=== PATIENT | male | born 1945 | race Caucasian/White ===

== ENCOUNTER → 2018-02-24 21:21 | Outpatient (CLI) | payer MEDICARE, OTHER, SELFPAY ==
[2018-02-24 21:36] LABS: Absolute Lymphocyte Count 1.94 X10^3/ul (0.83-4.51); Absolute Neutrophil Count 4.1 X10^3/uL (2.0-7.7); Basophil# 0.02 X10^3/uL; Basophil% 0.3 % (0-1); Eosinophil# 0.18 X10^3/uL; Eosinophils% 2.5 % (0-5); Hematocrit 47.3 % (40-54); Hemoglobin 15.6 g/dl (13.0-16.5); Lymphocyte # 1.94 X10^3/ul (4.0); Lymphocyte % 27.2 % (19-41); Mean Corpuscular Hgb 31.8 pg (27.0-32.0); Mean Corpuscular Volume 96.3 fL (80-94); Mean Platelet Vol. 12.9 fl (6.2-12.0); Monocyte# 0.89 X10^3/uL; Monocyte% 12.5 % (0-10); Neutrophil % 57.4 % (47-70); Platelet Count 153 K/mm3 (150-450); RBC Distribution Width CV 13.3 % (11.6-14.6); RBC Distribution Width SD 47.4 fl (35.1-43.9); Red Blood Count 4.91 M/mm3 (4.6-6.2); White Blood Count 7.1 K/mm3 (4.4-11.0)
[2018-02-24 21:37] LABS: POSITIVE COUNT NO; POSITIVE DIFFERENTIAL NO; POSITIVE MORPHOLOGY NO
[2018-02-24 22:02] LABS: Alkaline Phosphatase 133 U/L (45-117); GGTP 32 U/L (15-85)
[2018-02-26 20:07] LABS: Alkaline Phosphatase, Serum 130 IU/L (39-117); Bone Fraction 22 % (12-68); Liver Fraction 74 % (13-88)
[2018-02-27 14:07] LABS: Intestinal Fraction 5 % (0-18)
== END ==
PROVIDERS: Visit Provider Nurse Practitioner
DX: D58.2 Other hemoglobinopathies (principal); R74.8 Abnormal levels of other serum enzymes
CPT/HCPCS: 82977; 84075; 84080; 85025

== ENCOUNTER 2018-05-05 15:54 | Emergency (ER) | payer MEDICARE, OTHER, SELFPAY ==
[2018-05-05 15:56] VITALS: BP 149/80; PULSE 109; RESP 16; TEMP 36.8; O2SAT 97; BMI 25.1
--- NOTE | 2018-05-05 16:03 | NURSING ---
NO OLD EKGS
--- NOTE | 2018-05-05 16:27 | ED.DCSUM_ITS ---
- ER Visit Summary Date of Service: 05/05/18 Chief Complaint: Irregular heartbeat History of Present Illness: The patient is a 72 M known history of CAD, CT x2, hypertension, high cholesterol, cardiac stents, triple bypass in 2003. Patient was at his pain management doctors office today was going to get an epidural injection they felt his heart rate was irregular and same in the ER. He denies any chest pain or shortness of breath. He himself did not feel any symptoms. Says he feels fine. He denied being lightheaded or dizzy. He denies any history of A. fib or flutter. Physical Examination: Well-appearing older male. Vital signs are stable. He is afebrile. Pulse is 97% room air no signs of hypoxia. HEENT exam unremarkable. Neck nontender no lymphadenopathy. Lungs clear to auscultation bilaterally. Heart regular rhythm no murmur. Abdomen soft nontender. Normal bowel sounds no peritoneal signs. Extremities moves all 4. Calves nontender without edema or cords. Neurologically is awake alert with no focal motor deficits. Test Results: Chest x-ray shows cardiomegaly. With a prior sternotomy. Read by myself. His initial CBC I believe there would be a lab error as hemoglobin was 23 and his platelets were 55 ahead and repeated with a repeat draw and the second CBC showed a white count of 9 hemoglobin is 16 and hematocrit of 47 and platelet count of 134 which is more consistent with his prior CBCs. Chemistry panel unremarkable potassium 3.3. Normal gap and creatinine. Troponin normal. EKG shows sinus rhythm rate is 64 with PACs. He did have a prior CT that is cued out in the inferior leads. But there is no acute CT at this time is having no symptoms. I do not have an old EKG available for comparison. Emergency Department Course and Treatment: Patient sent in for abnormal cardiac rhythm. I did review the rhythm strip from the doctor's office most of that was regular sinus rhythm there may have been some PACs. Treatment Plan: Multiple repeat exams patient is doing well. He will be discharged home. Disposition: Discharge Impression: Irregular heartbeat secondary to PACs History of CAD, MIs x2 and stents This note was generated with [employer] dictation software. It may contain incorrect words, spelling, and punctuation that were not noted in review of the chart prior to signing ED Disposition - Plan for ED Patient: Chief Complaint: Palpitations Referrals: Caprice Morales, PRIMO-C [Primary Care Provider] -
--- NOTE | 2018-05-05 17:16 | RAD_ITS ---
STUDY: X-RAY CHEST REASON FOR EXAM: Male, 72 years old. Chest pain and palpitations TECHNIQUE: 1 view frontal COMPARISON: CT chest August 28, 2016 FINDINGS: Sternotomy and mediastinal clips. The lungs are clear and expanded. There is no demonstrated pleural abnormality. Normal size heart. Normal mediastinum and tapan. Normal visualized pulmonary arteries. Normal visualized aortic arch and descending thoracic aorta. Normal visualized thoracic spine. Normal visualized ribs, clavicles, and shoulders. There is no demonstrated abnormality of the visualized soft tissue structures of the upper abdomen. RAD/Chest 1 View (Portable) IMPRESSION: Sternotomy. No acute disease. Electronically Signed: Daniel Merlos MD at 18:37 EST , Service support ,
[2018-05-05 17:34] VITALS: O2SAT 100
[2018-05-05 17:38] LABS: Anion Gap 5 (5-15); BUN 12 mg/dL (7-18); BUN/Creat Ratio 13.8 RATIO (10-20); Chloride 102 mmol/L (98-107); Creatinine, Serum 0.87 mg/dL (0.70-1.30); EST Glomerular Filtration Rate 91 mL/min (>60); Est Glom Filt Rate - Afr Amer 111 mL/min (>60); Estimated Creatinine Clearance 75.62 ml/min; Glucose 106 mg/dL (74-106); Potassium 3.3 mmol/L (3.5-5.1); Sodium Level 138 mmol/L (136-145)
--- NOTE | 2018-05-05 17:59 | EKG12_ITS ---
Test Reason : DYSRHYTHMIA Blood Pressure : / mmHG Vent. Rate : 064 BPM Atrial Rate : 064 BPM P-R Int : 188 ms QRS Dur : 106 ms QT Int : 406 ms P-R-T Axes : -11 -24 012 degrees QTc Int : 418 ms Sinus rhythm with Premature atrial complexes Voltage criteria for left ventricular hypertrophy Lateral infarct , age undetermined Inferior infarct , possibly acute Consider right ventricular involvement in acute inferior infarct Abnormal ECG Confirmed by SCOTTY PARK, LUIZ ([id number]), make up editor ANGIE MARSH ([id number]) on 05/07/2018 1:15:21 PM Referred By: JUANJOSE Confirmed By:LUIZ FAJARDO MD
[2018-05-05 18:05] VITALS: BP 124/76; PULSE 54; RESP 16; O2SAT 99
[2018-05-05 18:16] LABS: Hematocrit 47.3 % (40-54); Hemoglobin 16.3 g/dl (13.0-16.5); Mean Corp Hgb Conc 34.5 g/gl (32-36); Mean Corpuscular Hgb 32.5 pg (27.0-32.0); Mean Corpuscular Volume 94.2 fL (80-94); Mean Platelet Vol. 12.5 fl (6.2-12.0); Platelet Count 134 K/mm3 (150-450); RBC Distribution Width CV 13.3 % (11.6-14.6); RBC Distribution Width SD 45.8 fl (35.1-43.9); Red Blood Count 5.02 M/mm3 (4.6-6.2); White Blood Count 9.2 K/mm3 (4.4-11.0)
[2018-05-05 18:30] LABS: Scan Indicated on CBC? Y/N NO
--- NOTE | 2018-05-05 18:35 | ED.DEP ---
ED Disposition - Plan for ED Patient: Disposition: Home or Assisted Living Chief Complaint: Palpitations Instructions: ED Palpitations Referrals: Caprice Morales NP-C [Primary Care Provider] - As Needed Additional Instructions: Follow-up with your doctor with regular scheduled appointment.
[2018-05-05 18:51] VITALS: BP 124/76; PULSE 59; RESP 16
== END 2018-05-05 18:53 | disposition home or self-care (01) ==
PROVIDERS: Emergency Provider Emergency Medicine; Family Provider Nurse Practitioner; PCP Nurse Practitioner
DX: I49.1 Atrial premature depolarization (principal); I25.10 Atherosclerotic heart disease of native coronary artery without angina pectoris; I10 Essential (primary) hypertension; E78.00 Pure hypercholesterolemia, unspecified; Z79.82 Long term (current) use of aspirin; Z79.899 Other long term (current) drug therapy; I25.2 Old myocardial infarction; Z85.46 Personal history of malignant neoplasm of prostate; Z95.5 Presence of coronary angioplasty implant and graft; Z95.1 Presence of aortocoronary bypass graft
CPT/HCPCS: 71045; 80048; 84484; 85027; 93005; 99285; A4216

== ENCOUNTER → 2018-12-13 22:28 | Outpatient (CLI) | payer MEDICARE, SELFPAY ==
[2018-12-13 15:02] VITALS: BMI 25.9
[2018-12-13 22:49] LABS: Absolute Lymphocyte Count 2.36 X10^3/ul (0.83-4.51); Absolute Neutrophil Count 4.9 X10^3/uL (2.0-7.7); Basophil# 0.05 X10^3/uL; Basophil% 0.6 % (0-1); Eosinophil# 0.24 X10^3/uL; Eosinophils% 2.8 % (0-5); Hematocrit 48.3 % (40-54); Hemoglobin 16.7 g/dl (13.0-16.5); Lymphocyte # 2.36 X10^3/ul (4.0); Lymphocyte % 27.3 % (19-41); Mean Corp Hgb Conc 34.6 g/gl (32-36); Mean Corpuscular Hgb 32.5 pg (27.0-32.0); Mean Platelet Vol. 13.7 fl (6.2-12.0); Monocyte# 1.09 X10^3/uL; Monocyte% 12.6 % (0-10); Neutrophil # 4.89 X10^3/uL (2.7-7.7); Neutrophil % 56.5 % (47-70); Platelet Count 154 K/mm3 (150-450); RBC Distribution Width CV 13.1 % (11.6-14.6); Red Blood Count 5.14 M/mm3 (4.6-6.2); White Blood Count 8.7 K/mm3 (4.4-11.0)
[2018-12-13 22:51] LABS: ALB/GLOB Ratio 1.1 RATIO (0.9-2.4); AST(SGOT) 37 U/L (15-37); Alanine Aminotransfer ALT/SGPT 44 U/L (16-61); Albumin, Serum 4.4 g/dL (3.2-5.0); Alkaline Phosphatase 146 U/L (45-117); Anion Gap 8 (5-15); BUN 20 mg/dL (7-18); BUN/Creat Ratio 17.5 RATIO (10-20); Calcium,Total 9.1 mg/dL (8.5-10.1); Chloride 104 mmol/L (98-107); Cholesterol 163 mg/dL (200); Creatinine, Serum 1.14 mg/dL (0.70-1.30); EST Glomerular Filtration Rate 67 mL/min (>60); Est Glom Filt Rate - Afr Amer 81 mL/min (>60); Globulin 3.9 g/dL (2.2-4.2); Glucose 84 mg/dL (74-106); High Density Lipoprotein 44 mg/dL; PSA,Total - Annual Screen < 0.01 ng/mL (0.00-4.00); Protein, Total 8.3 g/dL (6.4-8.2); Sodium Level 143 mmol/L (136-145); Triglycerides 217 mg/dL; Very Low Density Lipoprotein 43 mg/dL (5-40)
[2018-12-13 22:54] LABS: POSITIVE COUNT NO; POSITIVE DIFFERENTIAL NO; POSITIVE MORPHOLOGY NO
== END ==
PROVIDERS: Family Provider Nurse Practitioner; PCP Nurse Practitioner; Referring Provider Nurse Practitioner; Visit Provider Nurse Practitioner
DX: E78.5 Hyperlipidemia, unspecified (principal); I10 Essential (primary) hypertension; R35.0 Frequency of micturition; Z12.5 Encounter for screening for malignant neoplasm of prostate
CPT/HCPCS: 80053; 80061; 84153; 85025; G0103

== ENCOUNTER → 2019-06-06 12:43 | Outpatient (CLI) | payer MEDICARE, SELFPAY ==
[2019-03-31 13:11] VITALS: BMI 25.1
--- NOTE | 2019-06-06 12:51 | ART_ITS ---
Reason For Study: PVD Procedure A bilateral lower extremity continuous wave Doppler with analog waveform analysis,segmental pressures,and ankle brachial indexes without exercise. Left Segmental Pressures Left brachial= 148mmHg. Left posterior tibial artery = 201mmHg. Left dorsalis pedis artery = 202mmHg. Left digit = 101 mmHg. The left dorsalis pedis waveforms are triphasic. The left posterior tibial artery waveforms are triphasic. Right Segmental Pressures Right brachial= 156mmHg. Right posterior tibial artery = 206mmHg. Right dorsalis pedis artery = 189mmHg. Right digit = 88 mmHg. The right dorsalis pedis waveforms are triphasic. The right posterior tibial artery waveforms are triphasic. Indices The right ankle brachial index by the dorsalis pedis is 1.21. The right ankle brachial index by the posterior tibial artery is 1.32. The right digital-brachial index is 0.56. The left ankle brachial index by the dorsalis pedis is 1.29. The left ankle brachial index by the posterior tibial artery is 1.29. The left digital-brachial index is 0.65. Interpretation Summary Triphasic Doppler waveforms are noted at ankle level bilaterally. Pulse-volume recording waveform amplitudes are diminished at digital level bilaterally, but satisfactory at low-thigh, calf, and ankle levels bilaterally. Resting ankle-brachial indices are normal bilaterally. Digital-brachial indices are mildly diminished. Arterial flow appears to be normal at ankle level bilaterally. There is evidence of mild, distal, small-vessel arterial occlusive disease at digital level bilaterally. Ordering Physician: Caprice Morales Referring Physician: Caprice Morales Performed By: Leora Kulkarni RVT
--- NOTE | 2019-06-06 12:51 | VDLE_ITS ---
Reason For Study: PVD RIGHT LEFT CFV is compressible, spontaneous, phasic, CFV is compressible, spontaneous, phasic, competent and demonstrates normal competent, and demonstrates normal augmentation. augmentation. FV is compressible, spontaneous, phasic, FV is compressible, spontaneous, phasic, competent and demonstrates normal competent and demonstrates normal augmentation. augmentation. POP V is compressible, spontaneous, phasic, POP V is compressible, spontaneous, phasic, competent and demonstrates normal competent and demonstrates normal augmentation. augmentation. T/P Trunk is compressible. T/P Trunk is compressible. PTV is compressible. PTV is compressible. RT PerV is compressible. LT PerV is compressible. SFJ is INCOMPETENT and measures 0.66 x 0.69 SFJ is competent and measures 0.39 x 0.39 cm. cm. GSV proximal thigh measures 0.36 x 0.36 cm. GSV proximal thigh measures 0.61 x 0.66 cm. GSV in prox thigh is INCOMPETENT for greater GSV at knee measures 0.33 x 0.35 cm. than 0.5 seconds. GSV INCOMPETENT throughout for greater than GSV mid thigh and below was previously 0.5 seconds. ablated. ASV mid thigh is INCOMPETENT for greater than SSV was too small to evaluate. 0.5 seconds and measures 0.39 x 0.40 cm. ASV mid thigh is INCOMPETENT for greater than SSV at junction is competent and measures 0.5 seconds and measures 0.25 x 0.21 cm. 0.15 x 0.15 cm. Procedure Exam performed in department. Interpretation Summary Deep veins of the lower extremities are bilaterally patent and compressible segmentally. There is no evidence of deep vein thrombosis on either side. Valvular competence appears intact within the proximal deep venous systems bilaterally. The right great saphenous vein appears patent and compressible segmentally. The right sapheno-femoral junction is incompetent . The left sapheno- femoral junction is competent . The right great saphenous vein appears segmentally incompetent. The left great saphenous vein in the proximal thigh is incompetent. The left great saphenous vein has been ablated in the mid-thigh and more distally. The right small saphenous vein is patent and competent. The left small saphenous vein is too small to evaluate. The right accessory saphenous vein in the right mid-thigh is incompetent. The left accessory saphenous vein in the left mid-thigh is incompetent. Ordering Physician: Caprice Morales Referring Physician: Caprice Morales Performed By: Leora Kulkarni RVT
== END ==
PROVIDERS: Family Provider Nurse Practitioner; PCP Nurse Practitioner; Referring Provider Nurse Practitioner; Visit Provider Nurse Practitioner
DX: I73.9 Peripheral vascular disease, unspecified (principal); I83.90 Asymptomatic varicose veins of unspecified lower extremity; R60.0 Localized edema; R23.3 Spontaneous ecchymoses
CPT/HCPCS: 93923; 93970

== ENCOUNTER → 2019-11-24 | Outpatient (CLI) | payer MEDICARE, SELFPAY ==
[2019-11-24 16:58] VITALS: BMI 26.2
[2019-11-24 22:10] LABS: Absolute Lymphocyte Count 2.04 X10^3/uL (0.83-4.51); Absolute Neutrophil Count 6.6 X10^3/uL (2.0-7.7); Basophil# 0.06 X10^3/uL; Basophil% 0.6 % (0-1); Eosinophil# 0.14 X10^3/uL; Eosinophils% 1.4 % (0-5); Hemoglobin 16.7 g/dL (13.0-16.5); Lymphocyte # 2.04 X10^3/ul (4.0); Lymphocyte % 20.5 % (19-41); Mean Corp Hgb Conc 34.1 g/dL (32-36); Mean Corpuscular Hgb 32.4 pg (27.0-32.0); Mean Platelet Vol. 13.3 fl (6.2-12.0); Monocyte# 1.02 X10^3/uL; Monocyte% 10.3 % (0-10); NRBC Flagged by Analyzer 0 % (0-5); Neutrophil # 6.63 X10^3/uL (2.7-7.7); Neutrophil % 66.8 % (47-70); Platelet Count 151 K/mm3 (150-450); RBC Distribution Width CV 12.9 % (11.6-14.6); RBC Distribution Width SD 44.8 fl (35.1-43.9); Red Blood Count 5.16 M/mm3 (4.6-6.2); White Blood Count 9.9 K/mm3 (4.4-11.0)
[2019-11-24 22:23] LABS: ALB/GLOB Ratio 1.1 RATIO (0.9-2.4); AST(SGOT) 34 U/L (15-37); Alanine Aminotransfer ALT/SGPT 65 U/L (16-61); Albumin, Serum 4.1 g/dL (3.2-5.0); Alkaline Phosphatase 147 U/L (45-117); Anion Gap 7 (5-15); BUN 14 mg/dL (7-18); BUN/Creat Ratio 13.7 RATIO (10-20); Calcium,Total 9.2 mg/dL (8.5-10.1); Chloride 100 mmol/L (98-107); Cholesterol 162 mg/dL (200); Creatinine, Serum 1.02 mg/dL (0.70-1.30); EST Glomerular Filtration Rate 76 mL/min (>60); Est Glom Filt Rate - Afr Amer 92 mL/min (>60); Globulin 3.7 g/dL (2.2-4.2); Glucose 119 mg/dL (74-106); High Density Lipoprotein 51 mg/dL; Potassium 3.7 mmol/L (3.5-5.1); Protein, Total 7.8 g/dL (6.4-8.2); Sodium Level 138 mmol/L (136-145); Triglycerides 205 mg/dL; Very Low Density Lipoprotein 41 mg/dL (5-40)
== END | disposition home or self-care (01) ==
PROVIDERS: PCP Nurse Practitioner; Referring Provider Nurse Practitioner; Visit Provider Nurse Practitioner
DX: I10 Essential (primary) hypertension (principal); E78.5 Hyperlipidemia, unspecified
CPT/HCPCS: 80053; 80061; 85025

== ENCOUNTER → 2020-12-24 21:39 | Outpatient (CLI) | payer MEDICARE, SELFPAY ==
[2020-11-01 18:30] VITALS: BMI 25.9
[2020-12-24 21:45] LABS: Absolute Lymphocyte Count 2.14 X10^3/uL (0.83-4.51); Absolute Neutrophil Count 6.4 X10^3/uL (2.0-7.7); Basophil# 0.05 X10^3/uL; Basophil% 0.5 % (0-1); Eosinophil# 0.14 X10^3/uL; Eosinophils% 1.4 % (0-5); Hematocrit 50.9 % (40-54); Hemoglobin 16.9 g/dL (13.0-16.5); Lymphocyte # 2.14 X10^3/ul (0.83-4.51); Lymphocyte % 21.8 % (19-41); Mean Corp Hgb Conc 33.2 g/dL (32-36); Mean Corpuscular Hgb 31.5 pg (27.0-32.0); Mean Corpuscular Volume 94.8 fL (80-94); Mean Platelet Vol. 12.9 fl (6.2-12.0); Monocyte# 1.02 X10^3/uL; Monocyte% 10.4 % (0-10); NRBC Flagged by Analyzer 0 % (0-5); Neutrophil # 6.42 X10^3/uL (2.7-7.7); Neutrophil % 65.5 % (47-70); Platelet Count 156 K/mm3 (150-450); RBC Distribution Width SD 45.4 fl (35.1-43.9); Red Blood Count 5.37 M/mm3 (4.6-6.2); White Blood Count 9.8 K/mm3 (4.4-11.0)
[2020-12-24 22:02] LABS: ALB/GLOB Ratio 1.1 RATIO (0.9-2.4); AST(SGOT) 31 U/L (15-37); Alanine Aminotransfer ALT/SGPT 45 U/L (16-61); Albumin, Serum 4.2 g/dL (3.2-5.0); Alkaline Phosphatase 146 U/L (45-117); Anion Gap 7 (5-15); BUN 14 mg/dL (7-18); BUN/Creat Ratio 14.6 RATIO (10-20); CRP, High Sensitivity Cardiac 1.42 mg/L; Calcium,Total 9.3 mg/dL (8.5-10.1); Chloride 101 mmol/L (98-107); Cholesterol 164 mg/dL (200); Creatinine, Serum 0.96 mg/dL (0.70-1.30); EST Glomerular Filtration Rate 81 mL/min (>60); Est Glom Filt Rate - Afr Amer 98 mL/min (>60); Globulin 3.7 g/dL (2.2-4.2); Glucose 95 mg/dL (74-106); High Density Lipoprotein 56 mg/dL; PSA,Total - Annual Screen < 0.01 ng/mL (0.00-4.00); Potassium 3.8 mmol/L (3.5-5.1); Protein, Total 7.9 g/dL (6.4-8.2); Sodium Level 137 mmol/L (136-145); Triglycerides 180 mg/dL; Very Low Density Lipoprotein 36 mg/dL (5-40)
== END ==
PROVIDERS: PCP Nurse Practitioner; Referring Provider Nurse Practitioner; Visit Provider Nurse Practitioner
DX: I10 Essential (primary) hypertension (principal); R35.0 Frequency of micturition; Z12.5 Encounter for screening for malignant neoplasm of prostate
CPT/HCPCS: 80053; 80061; 84153; 85025; 86141; G0103

== ENCOUNTER → 2022-03-10 | Outpatient (CLI) | payer MEDICARE, SELFPAY ==
[2022-03-10 22:55] LABS: Absolute Lymphocyte Count 2.09 X10^3/uL (0.83-4.51); Absolute Neutrophil Count 6.1 X10^3/uL (2.0-7.7); Basophil# 0.08 X10^3/uL; Basophil% 0.8 % (0-1); Eosinophil# 0.12 X10^3/uL; Eosinophils% 1.3 % (0-5); Hematocrit 48.8 % (40-54); Hemoglobin 16.7 g/dL (13.0-16.5); Lymphocyte # 2.09 X10^3/ul (0.83-4.51); Lymphocyte % 22.1 % (19-41); Mean Corp Hgb Conc 34.2 g/dL (32-36); Mean Corpuscular Hgb 33.2 pg (27.0-32.0); Mean Platelet Vol. 12.8 fl (6.2-12.0); Monocyte# 1.07 X10^3/uL; Monocyte% 11.3 % (0-10); NRBC Flagged by Analyzer 0 % (0-5); Neutrophil # 6.05 X10^3/uL (2.7-7.7); Platelet Count 176 K/mm3 (150-450); RBC Distribution Width CV 13.2 % (11.6-14.6); RBC Distribution Width SD 46.8 fl (35.1-43.9); Red Blood Count 5.03 M/mm3 (4.6-6.2); White Blood Count 9.5 K/mm3 (4.4-11.0)
[2022-03-10 23:10] LABS: ALB/GLOB Ratio 1.1 RATIO (0.9-2.4); AST(SGOT) 25 U/L (15-37); Alanine Aminotransfer ALT/SGPT 41 U/L (16-61); Albumin, Serum 3.9 g/dL (3.2-5.0); Alkaline Phosphatase 123 U/L (45-117); Anion Gap 7 (5-15); BUN 14 mg/dL (7-18); BUN/Creat Ratio 14.2 RATIO (10-20); Calcium,Total 9.6 mg/dL (8.5-10.1); Chloride 101 mmol/L (98-107); Cholesterol 165 mg/dL (200); Creatinine, Serum 0.98 mg/dL (0.70-1.30); EST Glomerular Filtration Rate 79 mL/min (>60); Est Glom Filt Rate - Afr Amer 95 mL/min (>60); Globulin 3.5 g/dL (2.2-4.2); Glucose 108 mg/dL (74-106); High Density Lipoprotein 59 mg/dL; PSA,Total - Annual Screen < 0.01 ng/mL (0.00-4.00); Potassium 4.3 mmol/L (3.5-5.1); Protein, Total 7.4 g/dL (6.4-8.2); Sodium Level 140 mmol/L (136-145); Triglycerides 197 mg/dL; Very Low Density Lipoprotein 39 mg/dL (5-40)
== END | disposition home or self-care (01) ==
PROVIDERS: PCP Nurse Practitioner; Visit Provider Nurse Practitioner
DX: I10 Essential (primary) hypertension (principal); J30.2 Other seasonal allergic rhinitis; R35.0 Frequency of micturition; Z12.5 Encounter for screening for malignant neoplasm of prostate
CPT/HCPCS: 80053; 80061; 84153; 85025; G0103

== ENCOUNTER → 2023-02-23 | Outpatient (CLI) | payer MEDICARE, SELFPAY ==
[2023-02-23 21:10] LABS: Absolute Lymphocyte Count 1.89 X10^3/uL (0.83-4.51); Absolute Neutrophil Count 5.2 X10^3/uL (2.0-7.7); Basophil# 0.06 X10^3/uL; Basophil% 0.7 % (0-1); Eosinophil# 0.23 X10^3/uL; Eosinophils% 2.7 % (0-5); Hemoglobin 16.6 g/dL (13.0-16.5); Lymphocyte # 1.89 X10^3/ul (0.83-4.51); Lymphocyte % 22.4 % (19-41); Mean Corp Hgb Conc 33.9 g/dL (32-36); Mean Corpuscular Hgb 32.4 pg (27.0-32.0); Mean Corpuscular Volume 95.7 fL (80-94); Mean Platelet Vol. 12.7 fl (6.2-12.0); Monocyte% 11.8 % (0-10); NRBC Flagged by Analyzer 0 % (0-5); Neutrophil # 5.22 X10^3/uL (2.7-7.7); Neutrophil % 61.8 % (47-70); Platelet Count 169 K/mm3 (150-450); RBC Distribution Width SD 45.7 fl (35.1-43.9); Red Blood Count 5.12 M/mm3 (4.6-6.2); White Blood Count 8.5 K/mm3 (4.4-11.0)
[2023-02-23 21:27] LABS: AST(SGOT) 29 U/L (15-37); Alanine Aminotransfer ALT/SGPT 44 U/L (16-61); Albumin, Serum 3.8 g/dL (3.2-5.0); Alkaline Phosphatase 129 U/L (45-117); Anion Gap 5 (5-15); BUN 14 mg/dL (7-18); BUN/Creat Ratio 13.7 RATIO (10-20); Calcium,Total 9.2 mg/dL (8.5-10.1); Chloride 101 mmol/L (98-107); Cholesterol 176 mg/dL (200); Creatinine, Serum 1.02 mg/dL (0.70-1.30); EST Glomerular Filtration Rate 75 mL/min (>60); Est Glom Filt Rate - Afr Amer 91 mL/min (>60); Globulin 3.7 g/dL (2.2-4.2); Glucose 121 mg/dL (74-106); High Density Lipoprotein 54 mg/dL; PSA,Total- Diagnostic < 0.01 ng/mL (0.0-4.0); Potassium 3.7 mmol/L (3.5-5.1); Protein, Total 7.5 g/dL (6.4-8.2); Sodium Level 138 mmol/L (136-145); Triglycerides 195 mg/dL; Very Low Density Lipoprotein 39 mg/dL (5-40)
== END | disposition home or self-care (01) ==
PROVIDERS: PCP Nurse Practitioner; Referring Provider Nurse Practitioner; Visit Provider Nurse Practitioner
DX: K21.9 Gastro-esophageal reflux disease without esophagitis (principal); E78.5 Hyperlipidemia, unspecified; I10 Essential (primary) hypertension; R35.0 Frequency of micturition
CPT/HCPCS: 80053; 80061; 84153; 85025

== ENCOUNTER → 2024-03-09 | Outpatient (CLI) | payer MEDICARE, SELFPAY ==
[2024-03-09 21:26] LABS: Absolute Lymphocyte Count 2.27 X10^3/uL (0.83-4.51); Absolute Neutrophil Count 7.1 X10^3/uL (2.0-7.7); Basophil# 0.08 X10^3/uL; Basophil% 0.7 % (0-1); Eosinophil# 0.16 X10^3/uL; Eosinophils% 1.5 % (0-5); Hematocrit 50.2 % (40-54); Hemoglobin 16.9 g/dL (13.0-16.5); Lymphocyte # 2.27 X10^3/ul (0.83-4.51); Lymphocyte % 20.9 % (19-41); Mean Corp Hgb Conc 33.7 g/dL (32-36); Mean Corpuscular Hgb 32.3 pg (27.0-32.0); Mean Corpuscular Volume 95.8 fL (80-94); Mean Platelet Vol. 12.9 fl (6.2-12.0); Monocyte# 1.18 X10^3/uL; Monocyte% 10.9 % (0-10); NRBC Flagged by Analyzer 0 % (0-5); Neutrophil # 7.13 X10^3/uL (2.7-7.7); Neutrophil % 65.6 % (47-70); Platelet Count 166 K/mm3 (150-450); RBC Distribution Width CV 12.9 % (11.6-14.6); RBC Distribution Width SD 46.2 fl (35.1-43.9); Red Blood Count 5.24 M/mm3 (4.6-6.2); White Blood Count 10.9 K/mm3 (4.4-11.0)
[2024-03-09 21:44] LABS: ALB/GLOB Ratio 1.1 RATIO (0.9-2.4); AST(SGOT) 32 U/L (15-37); Alanine Aminotransfer ALT/SGPT 36 U/L (16-61); Albumin, Serum 4.2 g/dL (3.2-5.0); Alkaline Phosphatase 129 U/L (45-117); Anion Gap 6 (5-15); BUN 14 mg/dL (7-18); BUN/Creat Ratio 13.3 RATIO (10-20); Calcium,Total 9.8 mg/dL (8.5-10.1); Chloride 100 mmol/L (98-107); Cholesterol 139 mg/dL (200); Creatinine, Serum 1.05 mg/dL (0.70-1.30); EST Glomerular Filtration Rate 72 mL/min (>60); Est Glom Filt Rate - Afr Amer 88 mL/min (>60); Globulin 3.7 g/dL (2.2-4.2); Glucose 103 mg/dL (74-106); High Density Lipoprotein 52 mg/dL; PSA,Total - Annual Screen < 0.01 ng/mL (0.00-4.00); Potassium 4.1 mmol/L (3.5-5.1); Protein, Total 7.9 g/dL (6.4-8.2); Sodium Level 136 mmol/L (136-145); Triglycerides 189 mg/dL; Very Low Density Lipoprotein 38 mg/dL (5-40)
== END | disposition home or self-care (01) ==
PROVIDERS: PCP Nurse Practitioner; Referring Provider Nurse Practitioner; Visit Provider Nurse Practitioner
DX: I10 Essential (primary) hypertension (principal); E78.5 Hyperlipidemia, unspecified; R35.0 Frequency of micturition; Z12.5 Encounter for screening for malignant neoplasm of prostate
CPT/HCPCS: 80053; 80061; 84153; 85025; G0103

== ENCOUNTER → 2024-04-12 | Outpatient (CLI) | payer MEDICARE, SELFPAY ==
--- OUTSIDE RECORDS SUMMARY | 2024-04-12 23:36 | XMS RPT_ITS | CCD ---
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 Phone Monika Pepe Primary Care Provider PROVIDER, UNKNOWN Referring Unavailable Monika Pepe Primary Care Unavailable Vin Vincent Attending Unavailable Monika Pepe Primary Care Provider MONIKA PEPE Primary Care Unavailable HOSEA LEDESMA Attending Unavailable MONIKA PEPE Primary Care Unavailable HOSEA LEDESMA Attending Unavailable Allergies Allergy Classification Reported Allergen(s) Allergy Type Date of Onset Reaction(s) Facility (3 sources) beta-Blocking agent; Translations: [beta blockers] Drug allergy 12-11-19 17 [facility] Work Phone: Comment on above: note per Monika steele's, pcp office notes (2 sources) Ramipril; Translations: [ramipril] Drug Allergy 12-11-19 17 Dry cough (finding), Other (See Comments) [facility] Work Phone: Comment on above: per dr dr ledesma note (3 sources) Sulfamethoxazole / Trimethoprim; Translations: [sulfamethoxazole-tr imethoprim] Drug Allergy 04-23-20 23 Swelling, Hives [facility] Work Phone: (1 source) Sulfonamides (Antibiotic); Translations: [sulfa drugs] Drug allergy Hives, Tongue swelling [facility] Work Phone: (3 sources) Verapamil; Translations: [verapamil] Drug Allergy 05-05-20 18 [facility] Work Phone: Comment on above: per pcp , dr xin coreas's office note (1 source) Beta-Adrenergic Chris Propensity to adverse reactions to drug 12-11-19 17 Other (See Comments) [facility] (3 sources) Sulfonamides (Antibiotic) Propensity to adverse reactions to drug 12-11-19 17 Hives, Swelling, Unknown [facility] Work Phone: (2 sources) Ramipril Allergy to substance 12-11-19 17 Cough, Unknown [facility] Medications Current Medications Medication Drug Class(es) Dates Sig (Normalized) Sig (Original) amLODIPine 10 mg oral tablet (5 sources) Dihydropyridine Calcium Channel Chris Start: 02-23-2023 take 1 tablet by mouth once daily amLODIPine (Norvasc) 10 MG tablet Take 10 mg by mouth daily. 02/23/2023 Active Start: 09-10-2021 take 10 mg by mouth once daily 10 mg, Oral, DAILY, First dose on Thu02/07/22 at 0900, Until Discontinued atorvastatin 80 mg oral tablet (5 sources) HMG-CoA Reductase Inhibitor Start: 02-23-2023 take 1 tablet by mouth once daily atorvastatin (Lipitor) 80 MG tablet Take 80 mg by mouth daily. 02/23/2023 Active Start: 09-10-2021 take 80 mg by mouth once daily 80 mg, Oral, NIGHTLY, First dose on Thu02/06/22 at 2200, Until Discontinued cholecalciferol 0.025 mg oral capsule (2 sources) Vitamin D take 1 capsule by mouth once daily cholecalciferol (Vitamin D-3) 25 MCG (1000 UT) capsule Take 1,000 Units by mouth daily. Active citalopram 20 mg oral tablet (5 sources) Serotonin Reuptake Inhibitor Start: 02-24-20 take 1 tablet by mouth once daily citalopram (CeleXA) 20 MG tablet Take 20 mg by mouth Nightly. 02/23/2023 Active Start: 09-10-2021 take 20 mg by mouth once daily 20 mg, Oral, DAILY, First dose on Thu02/07/22 at 0900, Until Discontinued Elderberry preparation (1 source) Start: 09-10-2021 take 1 tablet by mouth once daily elderberry Dose = 1 tab(s), Oral, Daily, 0 Refill(s) Start Date: 09/10/21 Status: Ordered hydroCHLOROthiazide 12.5 mg oral tablet (5 sources) Thiazide Diuretic Start: 02-23-2023 take 1 tablet by mouth once daily hydroCHLOROthiazide (HYDRODiuril) 12.5 MG tablet Take 12.5 mg by mouth daily. 02/23/2023 Active Start: 02-07-2022 take 12.5 mg by mout h once daily 12.5 mg, Oral, DAILY, First dose on Thu02/07/22 at 0900, Until Discontinued Start: 09-10-2021 hydroCHLOROthi azide 12.5 mg oral capsule Dose : 12.5 mg = 1 cap(s), Oral, qDay, # 30 cap(s), 0 Refill(s) Start Date: 09/10/21 Status: Ordered lansoprazole 30 mg delayed release oral capsule (4 sources) Proton Pump Inhibitor Start: 02-23-2023 take 1 capsule by mouth once daily lansoprazole (Prevacid) [address] capsule Take 30 mg by mouth daily. 02/23/2023 Active Start: 09-10-2021 lansoprazole 3 0 mg oral delayed release capsule Dose : 30 mg = 1 cap(s), Oral, qDay, # 30 cap(s), 0 Refill(s) Start Date: 09/10/21 Status: Ordered losartan potassium 50 mg oral tablet (2 sources) Angiotensin 2 Receptor Chris Start: 04-07-2024 End: 04-07-2025 take 1 tablet by mouth once daily losartan (Cozaar) 50 MG tablet Take 1 tablet (50 mg) by mouth daily. 90 tablet 3 04/07/2024 04/07/2025 Active Lubricant Eye Drops ophthalmic solution (1 source) Start: 09-10-2021 take 1 drop(s) into the eye(s) four times daily as needed Lubricant Eye Drops ophthalmic solution Dose = 2 drop(s), Eye, left, QID, PRN for dry eyes, # 30 EA, 0 Refill(s) Start Date: 09/10/21 Status: Ordered Magnesium (1 source) Magnesium 100 MG CAPS Take by mouth 0 Active magnesium gluconate 500 mg oral tablet (1 source) take 1 tablet by mouth twice daily magnesium gluconate (MAGONATE) 500 MG tablet Take 500 mg by mouth 2 times daily 0 Active magnesium oxide 500 mg oral tablet (1 source) Start: 09-10-2021 magnesium oxide 500 mg oral tablet Dose : 500 mg = 1 tab(s), Oral, qDay Start Date: 09/10/21 Status: Ordered Misc Natural Products (GLUCOSAMINE CHOND COMPLEX/MSM PO) (1 source) Misc Natural Products (GLUCOSAMINE CHOND COMPLEX/MSM PO) Take by mouth 0 Active 1 ml morphine sulfate 4 mg/ml injection (1 source) Opioid Agonist Start: 02-06-2022 4 mg, IntraVENous, EVERY 4 HOURS PRN, 2 doses, Starting on Thu02/06/22 at 2155, Until Discontinued, Pain Severe (7-10) If oral and IV narcotics ordered, use oral first and only use IV if oral is ineffective or cannot take oral. Do Not give oral and IV within 1 hour of each other unless specifically ordered. MULTIPLE MINERALS-VITAMINS PO (2 sources) take 1 tablet by mouth once daily MULTIPLE MINERALS-VITAMINS PO Take 1 tablet by mouth daily. Active Multiple Vitamins-Minerals (CENTRUM SILVER 50+MEN PO) (1 source) Multiple Vitamins-Minerals (CENTRUM SILVER 50+MEN PO) Take by mouth 0 Active Multiple Vitamins-Minerals (PRESERVISION AREDS 2 PO) (1 source) Multiple Vitamins-Minerals (PRESERVISION AREDS 2 PO) Take by mouth 0 Active ofloxacin 3 mg/ml ophthalmic solution (1 source) Quinolone Antimicrobial Start: 09-17-2021 take 1 drop(s) into the eye(s) four times daily ofloxacin 0.3% ophthalmic solution drop(s), QID, 0 Refill(s) Start Date: 09/17/21 Status: Ordered Osteo Bi-Flex Advanced oral tablet (1 source) Start: 09-10-2021 take 1 tablet by mouth once daily at mealtime Osteo Bi-Flex Advanced oral tablet Dose = 1 tab(s), Oral, Daily, 0 Refill(s), Take with food Start Date: 09/10/21 Status: Ordered PreserVision AREDS 2 oral capsule (1 source) Start: 09-10-2021 take 1 capsule by mouth once daily PreserVision AREDS 2 oral capsule Dose = 1 cap(s), Oral, Daily, 0 Refill(s) Start Date: 09/10/21 Status: Ordered regadenoson (LEXISCAN) injection 0.4 mg (1 source) Start: 02-06-2022 take 0.4 mg intravenously once as needed 0.4 mg, IntraVENous, IMG ONCE PRN, 1 dose, Starting on Thu02/06/22 at 2155, Until Discontinued, Other Only to be given in Nuclear Med during CARDIAC STRESS TEST ONLY. resveratrol (2 sources) Start: 09-10-2021 take 1 tablet by mouth once daily resveratrol resveratrol, 1 tab(s), Oral, Daily, 0 Refill(s) Start Date: 09/10/21 Status: Ordered RESVERATROL PO T lynda by mouth 0 Active 1000 ml sodium chloride 9 mg/ml injection (4 sources) Start: 02-06-2022 take 25 mL intravenously every hour as needed 25 mL, IntraVENous, at 100 mL/hr, PRN, If patient receiving piggyback infusions without ordered maintenance IV fluids or with frequent/long duration piggyback infusions, Starting on [facility] 02/06/22 at 2148 Administer at the same rate as the piggyback being infused. Start: 02-06-2022 take 1 dose intraven ously twice daily 5-40 mL, IntraVENous, EVERY 12 HOURS SCHEDULED (2 times per day), First dose on [place] 02/06/22 at 2215, Until Discontinued For Line Patency: Peripheral IV = 5 mL; Midline or Central Line = 10 mL/lumen. If following IV push medication, administer flush at same rate as the IV push. Flush volume is determined by type of infusion therapy being given. For non-viscous solutions use: Peripheral IV = 5 mL Midline or Central Line = 10 mL/lumen For viscous solutions (i.e. blood components, parenteral nutrition, contrast media, or after obtaining blood sample) use: Peripheral IV = 10 mL Midline or Central Line = 20 mL/lumen Start: 02-06-2022 take 5-40 mL intrave nously once as needed 5-40 mL, IntraVENous, PRN, Starting on [place] 02/06/22 at 2148, Until Discontinued, Line Care, After every IV line use For Line Patency: Peripheral IV = 5 mL; Midline or Central Line = 10 mL/lumen. If following IV push medication, administer flush at same rate as the IV push. Flush volume is determined by type of infusion therapy being given. For non-viscous solutions use: Peripheral IV = 5 mL Midline or Central Line = 10 mL/lumen For viscous solutions (i.e. blood components, parenteral nutrition, contrast media, or after obtaining blood sample) use: Peripheral IV = 10 mL Midline or Central Line = 20 mL/lumen Start: 09-10-2021 Annette 128 5% op hthalmic solution Dose = 1 drop(s), Eye, right, QID, 0 Refill(s) Start Date: 09/10/21 Status: Ordered Vitamin C 500 mg oral tablet (1 source) Start: 09-10-2021 Vitamin C 500 mg oral tablet Dose : 1,000 mg = 2 tab(s), Oral, qDay, # 90 tab(s), 0 Refill(s) Start Date: 09/10/21 Status: Ordered Vitamin D3 125 mcg (5000 int l units) oral capsule (1 source) Start: 09-10-2021 Vitamin D3 125 mcg (5000 intl units) oral capsule Dose : 125 mcg = 1 cap(s), Oral, qDay, # 100 cap(s), 0 Refill(s) Start Date: 09/10/21 Status: Ordered zinc gluconate 50 mg oral ta blet (2 sources) Start: 09-10-2021 zinc (as gluco juan) 50 mg oral tablet Dose : 50 mg = 1 tab(s), Oral, Daily, # 30 tab(s), 0 Refill(s) Start Date: 09/10/21 Status: Ordered Completed/Discontinued Medications Medication Drug Class(es) Dates Sig (Normalized) Sig (Original) acetaminophen 325 mg oral tablet (1 source) Start: 02-06-2022 take 650 mg by mouth every eight hours as needed, then take 4000 mg by mouth every twenty-four hours as needed 650 mg, Oral, EVERY 8 HOURS PRN, Starting on Thu02/06/22 at 2154, Until Discontinued, Pain Mild (1-3) Maximum dose of acetaminophen is 4000 mg from all sources in 24 hours. aspirin 81 mg chewable tablet (5 sources) Platelet Aggregation Inhibitor, Nonsteroidal Anti-inflammatory Drug Start: 02-07-2022 take 81 mg by mouth once daily 81 mg, Oral, DAILY, First dose on Thu02/07/22 at 0900, Until Discontinued Start: 09-10-2021 aspirin 81 mg oral delayed release tablet Dose : 81 mg = 1 tab(s), Oral, Daily, 0 Refill(s) Start Date: 09/10/21 Status: Ordered take 1 tablet by phyllis once daily aspirin 81 MG tablet Take 81 mg by mouth daily 0 Active COENZYME Q-10 PO (1 source) End: 02-06-2022 COENZYME Q-10 PO Take by mouth 0 02/06/2022 Discontinued (LIST CLEANUP) 2 ml ondansetron 2 mg/ml injection (1 source) Serotonin-3 Receptor Antagonist Start: 02-06-2022 4 mg, IntraVENous, EVERY 30 MIN PRN, 2 doses, Starting on Thu02/06/22 at 2148, Until Discontinued, Nausea pantoprazole 40 mg delayed release oral tablet (1 source) Proton Pump Inhibitor Start: 02-07-2022 take 40 mg by mouth once daily before breakfast 40 mg, Oral, DAILY BEFORE BREAKFAST, First dose on Thu02/07/22 at 0700, Until Discontinued Do not crush or break. Substituted for Lansoprazole (PREVACID). prednisoLONE acetate 10 mg/ml ophthalmic suspension (2 sources) Corticosteroid Start: 02-07-2022 take 1 drop(s) into the eye(s) once daily 1 drop, Right Eye, DAILY, First dose on Thu02/07/22 at 0900, Until Discontinued prednisoLONE maninder gotti (PRED FORTE) 1 % ophthalmic suspension Place 1 drop into the right eye daily 0 Active Problems Active Problems Problem Classification Problem Date Documented Date Episodic/Chronic Allergic reactions (4 sources) Allergy status to sulfonamides status; Translations: [Allergy status to other drugs, medicaments and biological substances status] Onset: 2 Episodic Cancer of prostate (2 sources) Personal history of malignant neoplasm of prostate; Translations: [Personal history of malignant neoplasm of prostate] Onset: 2 Episodic Coronary atherosclerosis and other heart disease (12 sources) Coronary arteriosclerosis; Translations: [Atherosclerotic heart disease of [place] coronary artery without angina pectoris] Onset: 2 12-19-2016 Chronic Disorders of lipid metabolism (7 sources) Hyperlipidemia; Translations: [Hyperlipidemia, unspecified] Onset: 7 12-22-2016 Chronic Essential hypertension (11 sources) Hypertensive disorder; Translations: [Essential (primary) hypertension] Onset: 7 12-22-2016 Chronic Fluid and electrolyte disorders (2 sources) Hyperkalemia; Translations: [Hyperkalemia] Onset: 2 Episodic Malaise and fatigue (6 sources) Asthenia; Translations: [Weakness] Onset: 2 Resolved: 2 Episodic Other aftercare (2 sources) detention (current) use of aspirin; 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] Onset: 2 Episodic Other eye disorders (2 sources) Corneal transplant status; 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] Onset: 2 Chronic Other hematologic conditions (2 sources) Other specified abnormalities of plasma proteins; Translations: [Other specified abnormalities of plasma proteins] Onset: 2 Episodic Other lower respiratory disease (2 sources) Other abnormalities of breathing; Translations: [Other abnormalities of breathing] Onset: 2 Episodic Other screening for suspected conditions (not mental disorders or infectious disease) (3 sources) Electrocardiogram abnormal; Translations: [Abnormal electrocardiogram [ECG] [EKG]] Onset: 2 Episodic Residual codes; unclassified (2 sources) Acquired absence of other specified parts of digestive tract; Translations: [Acquired absence of other specified parts of digestive tract] Onset: 2 Episodic Unclassified (1 source) Contact with and (suspected) exposure to COVID-19; Translations: [Contact with and (suspected) exposure to COVID-19] Onset: 2 Past or Other Problems Problem Classification Problem Date Documented Da te Episodic/Chronic Coronary atherosclerosis and other heart disease (7 sources) Stent in branch of right coronary artery; Translations: [Presence of coronary angioplasty implant and graft] Onset: 05-18-2012 12-19-2016 Episodic Unclassified (1 source) Contact with and (suspected) exposure to COVID-19; Translations: [Contact with and (suspected) exposure to COVID-19] Onset: 02-06-2022 Results Test Name Value Interpretation Reference Range Facility No Panel Informationon 04-07 Atrial Rhythm Voltage criteria for LVH (R(I)+S(III) exceeds 2.50 mV). -consider inferior injury. -ST depression -Seen with left ventricular hypertrophy (strain) -consider ischemia. ABNORMAL [facility] Office Visiton 04-07-2024 Follow-up visit [id number] Nidhi Briggs 1945 M Date Provider Department Center 04/07/2024 [id number] [place] Family History Problem Relation Age of Onset Coronary artery disease Brother Coronary artery disease Father Coronary artery disease Brother Family Status - Relation Status Age at Brother Father Brother Alive Brother Brother Brother Mother Level of Service:37161 [place] OFFICE/OUTPATIENT ESTABLISHED MOD MDM 30 MIN Reason for Visit and Comments: 1 Year Follow-up [670] Coronary Artery Disease [187] Normal [facility] Progress Noteon 04-07-2024 Progress Note [facility] Cardiology [facility] [place] [address] [facility] [address] Dept: [phone] Dept Visit type: Established : 1945 Chief Complaint: Chief Complaint Patient presents with 1 Year Follow-up Coronary Artery Disease History of Present Illness: Nidhi Briggs is a 78 y.o. male who is here in follow-up concerning his coronary artery disease. He had multivessel bypass surgery 20 years ago. He has done well since. He did have stenting afterwards approximately 10 years ago. He has no symptoms of angina currently. He walks and exercises regularly. He has not had syncope, near syncope or palpitations. Past Medical History: Past Medical History: Diagnosis Date CAD (coronary artery disease) Cancer (CMS/HCC) (HCC) prostate Hyperlipidemia Hypertension Old [place] (myocardial infarction) 05/2012 [place] 195 Presence of stent in right coronary artery 05/18/2012 JATIN S/P CABG x 3 2003 HAJI to LAD,SVG to OM2 ^ PL RCA Past Surgical History Past Surgical History: Procedure Laterality Date BACK SURGERY 1999 CARDIAC PROCEDURE 11/2003 CHOLECYSTECTOMY CORNEAL TRANSPLANT 09/16/2021 CORONARY ANGIOPLASTY CORONARY ARTERY BYPASS GRAFT 12/04/2003 NS laden- .HAJI to LAD,SVG to Cx^PL RCA PROSTATECTOMY Bilateral 2004 Family History Family History Problem Relation Name Age of Onset Coronary artery disease Brother Coronary artery disease Father Coronary artery disease Brother Social History Social History Tobacco Use Smoking status: Never Smokeless tobacco: Never Substance Use Topics Alcohol use: Not Currently Alcohol/week: 1.0 standard drink of alcohol Drug use: No Allergies: Allergies Allergen Reactions Sulfa Antibiotics Hives, Swelling and Unknown Other reaction(s): HIVES/SWELLING Beta Adrenergic Blockers Other reaction(s): Other, Other (See Comments) bradycardia Ramipril Cough and Unknown Other reaction(s): Dry cough Non-productive cough Non-productive cough Sulfamethoxazole-Trimet hoprim Other reaction(s): Hives, Swelling Verapamil Other reaction(s): Other, Other: See Comments Medications: Current Outpatient Medications: amLODIPine (Norvasc) 10 MG tablet, Take 10 mg by mouth daily., Disp: , Rfl: aspirin 81 MG EC tablet, Take 81 mg by mouth in the morning., Disp: , Rfl: atorvastatin (Lipitor) 80 MG tablet, Take 80 mg by mouth daily., Disp: , Rfl: cholecalciferol (Vitamin D-3) 25 MCG (1000 UT) capsule, Take 1,000 Units by mouth daily., Disp: , Rfl: citalopram (CeleXA) 20 MG tablet, Take 20 mg by mouth Nightly., Disp: , Rfl: hydroCHLOROthiazide (HYDRODiuril) 12.5 MG tablet, Take 12.5 mg by mouth daily., Disp: , Rfl: lansoprazole (Prevacid) [address] capsule, Take 30 mg by mouth daily., Disp: , Rfl: MULTIPLE MINERALS-VITAMINS PO, Take 1 tablet by mouth daily., Disp: , Rfl: losartan (Cozaar) 50 MG tablet, Take 1 tablet (50 mg) by mouth daily., Disp: 90 tablet, Rfl: 3 Review of Systems: Review of Systems Constitutional: Negative for activity change, chills, diaphoresis, fatigue and fever. HENT: Negative for nosebleeds and trouble swallowing. Eyes: Negative for discharge and visual disturbance. Respiratory: Negative for apnea, cough, chest tightness, shortness of breath and wheezing. Cardiovascular: Negative for chest pain, palpitations and leg swelling. Gastrointestinal: Negative for abdominal distention, abdominal pain, blood in stool, diarrhea, nausea and vomiting. Endocrine: Negative for cold intolerance and heat intolerance. Genitourinary: Negative for hematuria. Musculoskeletal: Negative for gait problem and myalgias. Skin: Negative for color change and rash. Neurological: Negative for dizziness, seizures, syncope, facial asymmetry, speech difficulty, weakness, light-headedness, numbness and headaches. Hematological: Does not bruise/bleed easily. Psychiatric/Behavioral: Negative for dysphoric mood. Physical Examination: Vitals: Vitals: 04/07/24 1018 04/07/24 1040 BP: (!) 172/80 (!) 170/90 BP Location: Left arm Left arm Patient Position: Sitting Sitting BP Cuff Size: Adult Adult Pulse: 62 SpO2: 95% Weight: 173 lb 12.8 oz (78.8 kg) Height: 5' 9 (1.753 m) Body mass index is 25.67 kg/m?. Physical Exam Constitutional: Appearance: Normal appearance. HENT: Head: Normocephalic and atraumatic. Nose: Nose normal. Eyes: General: No scleral icterus. Extraocular Movements: Extraocular movements intact. Pupils: Pupils are equal, round, and reactive to light. Neck: Thyroid: No thyromegaly. Vascular: No carotid bruit or JVD. Cardiovascular: Rate and Rhythm: Normal rate and regular rhythm. Pulses: Normal pulses. Heart sounds: Murmur heard. Systolic murmur is present with a grade of 1/6. No gallop. Pulmonary: Effort: Pulmonary effort is normal. Breath sounds: No wheezing, rhonchi or rales. Taylor (more content not included)... Normal [facility] 36on 10-21-2023 36 Pt called in with concerns of bruising due to being on Aspirin 81 mg daily. Pt asking if there is anything else that he could take that would have the same effect but not cause such easy bruising. Pt reports that this is not new but just wanted to check and see if there was anything that could be taken in it's place? Explained to pt that low-dose aspirin is typically life-long for those with CAD and that anything that is meant to thin the blood has the potential to cause easy bruising. Pt verbalized understanding and states will just continue taking the aspirin as prescribed, and had no further questions at this time. Normal [facility] Office Visiton 04-23-2023 Follow-up visit [id number] Nidhi Briggs 1945 [facility] Provider Department Center 04/23/2023 [id number] [facility] [place] Family History Problem Relation Age of Onset Coronary artery disease Brother Coronary artery disease Father Coronary artery disease Brother Family Status - Relation Status Age at Brother Father Brother Alive Brother Brother Brother Mother Level of Service:78683 [place] OFFICE/OUTPATIENT ESTABLISHED MOD MDM 30-39 MIN Reason for Visit and Comments: 1 Year Follow-up [670] Coronary Artery Disease [187] Normal [facility] Progress Noteon 04-23-2023 Progress Note [facility] Cardiology [facility] [address] [facility] [address] Dept: [phone] Dept Visit type: Established : 1945 Chief Complaint: Chief Complaint Patient presents with 1 Year Follow-up Coronary Artery Disease History of Present Illness: Nidhi Briggs is a 77 y.o. male who is here in follow-up concerning his coronary artery disease. He is currently doing well with no symptoms of chest pain, tightness or shortness of breath. He exercises regularly. He has not had syncope or near syncope. Past Medical History: Past Medical History: Diagnosis Date CAD (coronary artery disease) Cancer (CMS/HCC) (HCC) prostate Hyperlipidemia Hypertension Old [place] (myocardial infarction) 05/2012 [place] 195 Presence of stent in right coronary artery 05/18/2012 JATIN S/P CABG x 3 2003 HAJI to LAD,SVG to OM2 ^ PL RCA Past Surgical History Past Surgical History: Procedure Laterality Date BACK SURGERY 1999 CARDIAC PROCEDURE 11/2003 CHOLECYSTECTOMY CORNEAL TRANSPLANT 09/16/2021 CORONARY ANGIOPLASTY CORONARY ARTERY BYPASS GRAFT 12/04/2003 NS laden- .HAJI to LAD,SVG to Cx^PL RCA PROSTATECTOMY Bilateral 2004 Family History Family History Problem Relation Name Age of Onset Coronary artery disease Brother Coronary artery disease Father Coronary artery disease Brother Social History Social History Tobacco Use Smoking status: Never Smokeless tobacco: Never Substance Use Topics Alcohol use: Not Currently Alcohol/week: 1.0 standard drink of alcohol Drug use: No Allergies: Allergies Allergen Reactions Sulfa Antibiotics Hives, Swelling and Unknown Other reaction(s): HIVES/SWELLING Beta Adrenergic Blockers Other reaction(s): Other, Other (See Comments) bradycardia Ramipril Cough and Unknown Other reaction(s): Dry cough Non-productive cough Non-productive cough Sulfamethoxazole-Trimet hoprim Other reaction(s): Hives, Swelling Verapamil Other reaction(s): Other, Other: See Comments Medications: Current Outpatient Medications: amLODIPine (Norvasc) 10 MG tablet, Take 10 mg by mouth daily., Disp: , Rfl: aspirin 81 MG EC tablet, Take 81 mg by mouth in the morning., Disp: , Rfl: atorvastatin (Lipitor) 80 MG tablet, Take 80 mg by mouth daily., Disp: , Rfl: cholecalciferol (Vitamin D-3) 25 MCG (1000 UT) capsule, Take 1,000 Units by mouth daily., Disp: , Rfl: citalopram (CeleXA) 20 MG tablet, Take 20 mg by mouth Nightly., Disp: , Rfl: hydroCHLOROthiazide (HYDRODiuril) 12.5 MG tablet, Take 12.5 mg by mouth daily., Disp: , Rfl: lansoprazole (Prevacid) [address] capsule, Take 30 mg by mouth daily., Disp: , Rfl: MULTIPLE MINERALS-VITAMINS PO, Take 1 tablet by mouth daily., Disp: , Rfl: Review of Systems: Review of Systems Constitutional: Negative for activity change, chills, diaphoresis, fatigue and fever. HENT: Negative for nosebleeds and trouble swallowing. Eyes: Negative for discharge and visual disturbance. Respiratory: Negative for apnea, cough, chest tightness, shortness of breath and wheezing. Cardiovascular: Negative for chest pain, palpitations and leg swelling. Gastrointestinal: Negative for abdominal distention, abdominal pain, blood in stool, diarrhea, nausea and vomiting. Endocrine: Negative for cold intolerance and heat intolerance. Genitourinary: Negative for hematuria. Musculoskeletal: Negative for gait problem and myalgias. Skin: Negative for color change and rash. Neurological: Negative for dizziness, seizures, syncope, facial asymmetry, speech difficulty, weakness, light-headedness, numbness and headaches. Hematological: Does not bruise/bleed easily. Psychiatric/Behavioral: Negative for dysphoric mood. Physical Examination: Vitals: Vitals: 04/23/23 1430 BP: 139/70 BP Location: Left arm Patient Position: Sitting BP Cuff Size: Large adult Pulse: 57 Resp: 16 SpO2: 94% Weight: 177 lb 12.8 oz (80.6 kg) Height: 5' 9 (1.753 m) Body mass index is 26.26 kg/m?. Physical Exam Constitutional: Appearance: Normal appearance. HENT: Head: Normocephalic and atraumatic. Nose: Nose normal. Eyes: General: No scleral icterus. Extraocular Movements: Extraocular movements intact. Pupils: Pupils are equal, round, and reactive to light. Neck: Thyroid: No thyromegaly. Vascular: No carotid bruit or JVD. Cardiovascular: Rate and Rhythm: Normal rate and regular rhythm. Pulses: Normal pulses. Heart sounds: No murmur heard. No gallop. Pulmonary: Effort: Pulmonary effort is normal. Breath sounds: No wheezing, rhonchi or rales. Chest: Chest wall: No tenderness. Abdominal: General: Abdomen is flat. There is no distension. Palpations: Abdomen is soft. There is no hepatomegaly, splenomegaly or mass. Musculoskeletal: General: No swelling or tenderness. Normal range of motion. Cervical back: No tender (more content not included)... Normal [facility] CULTURE URINEon 02-08-2022 CULTURE URINE CULTURE URINE --> Status: F No growth (<1,000 CFU/ml). Normal [facility] Comment on above: Performed By: #### H EMDF, BMP3, LIPD2 #### [facility] [address] [place] [address] Culture, Urineon 02-08-2022 Bacteria identified Cx Nom (U) No growth (<1,000 CFU/ml). 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: KERRIE : 1945 Requested By: MELODIE CHASE Order Number: [id number] Reading MD: Trenton Edge Measurements Intervals [place] Rate: 59 P: -21 AK: 164 QRS: -22 QRSD: 102 T: 132 QT: 440 QTc: 436 Interpretive Statements Probable ectopic atrial rhythm LVH WITH SECONDARY REPOLARIZATION ABNORMALITY PROBABLE INFERIOR INFARCT, AGE INDETERMINATE CONSIDER ANTERIOR INFARCT Electronically Signed On 02-08-2022 9:53:01 EDT by Trenton [facility] Trenton Edge MD - 02/08/2022 [facility] Test Date: 2022-02-07 Pat Name: NIDHI BRIGGS Department: [facility] Room: [facility] Gender: M 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: KERRIE : 1945 Requested By: MELODIE CHASE Order Number: [id number] Reading MD: Trenton Edge Measurements Intervals [place] Rate: 59 P: -21 AK: 164 QRS: -22 QRSD: 102 T: 132 QT: 440 QTc: 436 Interpretive Statements Probable ectopic atrial rhythm LVH WITH SECONDARY REPOLARIZATION ABNORMALITY PROBABLE INFERIOR INFARCT, AGE INDETERMINATE CONSIDER ANTERIOR INFARCT Electronically Signed On 02-08-2022 9:53:01 EDT by Trenton Edge [facility] Work Phone: [facility] Work Phone: EKG 12 leadon 02-08-2022 [facility] Test Date: 2022-02-07 Pat Name: NIDHI BRIGGS Department: [facility] Room: [facility] Gender: M 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: KERRIE : 1945 Requested By: FRANCESCA CYR Order Number: [id number] Reading : Trenton Edge Measurements Intervals [place] Rate: 47 P: 12 AK: 200 QRS: -21 QRSD: 104 T: 126 QT: 472 QTc: 418 Interpretive Statements SLOW SINUS ARRHYTHMIA PROBABLE LEFT ATRIAL ABNORMALITY LVH WITH SECONDARY REPOLARIZATION ABNORMALITY CONSIDER ANTERIOR INFARCT BORDERLINE ST ELEVATION, INFERIOR LEADS Electronically Signed On 02-08-2022 9:50:39 EDT by Trenton [facility]CD[facility]ELS [facility] Trenton Edge MD - 02/08/2022 [facility] Test Date: 2022-02-07 Pat Name: NIDHI BRIGGS Department: [facility] Room: [facility] Gender: M 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: KERRIE : 1945 Requested By: FRANCESCA CYR Order Number: [id number] Reading : Trenton Edge Measurements Intervals [place] Rate: 47 P: 12 AK: 200 QRS: -21 QRSD: 104 T: 126 QT: 472 QTc: 418 Interpretive Statements SLOW SINUS ARRHYTHMIA PROBABLE LEFT ATRIAL ABNORMALITY LVH WITH SECONDARY REPOLARIZATION ABNORMALITY CONSIDER ANTERIOR INFARCT BORDERLINE ST ELEVATION, INFERIOR LEADS Electronically Signed On 02-08-2022 9:50:39 EDT by Trenton Edge [facility] Work Phone: EKG 12 leadOrdered By: Taty Edge on 02-08-2022 [facility] Work Phone: Troponinon 02-08-2022 Troponin I.cardiac [Mass/Vol] 0.026 ng/mL 0 - 0.034 ng/mL [facility] Comment on above: . Test Performed by [facility], [address] [place] [id number] [place] [address] LAB [facility] Troponin Ion 02-08-2022 Troponin I.cardiac [Mass/Vol] 0.026 ng/mL Normal 0.000-0.034 [facility] Comment on above: Result Comment: . Performed By: #### T ROPN #### [facility] [address] [place] [address] Basic Metabolic Panelon 01-14 Calcium [Mass/Vol] 9.5 mg/dL Normal 8.4-10.4 [facility] Comment on above: Performed By: #### H EMDF, BMP3, LIPD2 #### [facility] [address] [place] [address] Glucose [Mass/Vol] 108 mg/dL High 70-100 [facility] Comment on above: Performed By: #### H EMDF, BMP3, LIPD2 #### [facility] [address] [place] [address] Urea nitrogen [Mass/Vol] 14 mg/dL Normal 7-17 [facility] Comment on above: Performed By: #### H EMDF, BMP3, LIPD2 #### [facility] [address] [place] [address] Anion gap [Moles/Vol] 2 mmol/L Low 3-13 [facility] Comment on above: Performed By: #### H EMDF, BMP3, LIPD2 #### [facility] [address] [place] [address] CO2 [Moles/Vol] 36 mmol/L High 22-30 [facility] Comment on above: Performed By: #### H EMDF, BMP3, LIPD2 #### [facility] [address] [place] [address] Creatinine [Mass/Vol] 0.86 mg/dL Normal 0.52-1.25 [facility] Comment on above: Performed By: #### H EMDF, BMP3, LIPD2 #### [facility] [address] [place] [address] GFR/1.73 sq M.predicted among blacks MDRD (S/P/Bld) [Vol rate/Area] mL/min/{1.73_m2} Normal >60 [facility] Comment on above: Performed By: #### H EMDF, BMP3, LIPD2 #### [facility] [address] [place] [address] GFR/1.73 sq M.predicted among non-blacks MDRD (S/P/Bld) [Vol rate/Area] 83.5 mL/min/{1.73_m2} Normal >60 [facility] Comment on above: Result Comment: KDIG O guidelines provide the following GFR categories: Stage GFR(ml/min/1.73 m2) Terms G1 >=90 Normal or high G2 60-89 Mildly decreased* G3a 45-59 Mildly to moderately decreased G3b 30-44 Moderately to severely decreased G4 15-29 Severely decreased G5 <15 Kidney failure *Relative to young adult level. In the absence of evidence of kidney damage, neither GFR category G1 nor G2 fulfill the criteria for CKD. The CKD-EPI equation is validated in individuals 18 years of age and older. Currently the best equation for estimating glomerular filtration rate (GFR) from serum creatinine in children is the Bedside Anderson equation. It is less accurate in patients with extremes of muscle mass, restriction of dietary protein, ingestion of creatine, extra-renal metabolism of creatinine, or treatment with medications that affect renal tubular creatinine secretion. Performed By: #### H EMDF, BMP3, LIPD2 #### [facility] [address] [place] [address] Potassium [Moles/Vol] 6.0 mmol/L High 3.5-5.1 [facility] Comment on above: Performed By: #### H EMDF, BMP3, LIPD2 #### [facility] [address] [place] [address] Chloride [Moles/Vol] 100 mmol/L Normal 98-107 [facility] Comment on above: Performed By: #### H EMDF, BMP3, LIPD2 #### [facility] [address] [place] [address] Sodium [Moles/Vol] 138 mmol/L Normal 135-145 [facility] Comment on above: Performed By: #### H EMDF, BMP3, LIPD2 #### [facility] [address] [place], [place] [address] Anion gap [Moles/Vol] 2 mmol/L Low 3 - 13 mmol/L [facility] Calcium [Mass/Vol] 9.5 mg/dL 8.4 - 10. 4 mg/dL [facility] Chloride [Moles/Vol] 100 mmol/L 98 - 10 7 mmol/L [facility] CO2 [Moles/Vol] 36 mmol/L High 22 - 30 mmol/L [facility] Creatinine [Mass/Vol] 0.86 mg/dL 0.52 - 1.25 mg/dL [facility] eGFR mL/min 60 - PINF mL/min [facility] EGFR IF NonAfrican Austrian 83.5 mL/min 60 - PINF mL/min [facility] Comment on above: KDIGO guidelines pro vide the following GFR categories: Stage GFR(ml/min/1.73 m2) Terms G1 >=90 Normal or high G2 60-89 Mildly decreased* G3a 45-59 Mildly to moderately decreased G3b 30-44 Moderately to severely decreased G4 15-29 Severely decreased G5 <15 Kidney failure *Relative to young adult level. In the absence of evidence of kidney damage, neither GFR category G1 nor G2 fulfill the criteria for CKD. The CKD-EPI equation is validated in individuals 18 years of age and older. Currently the best equation for estimating glomerular filtration rate (GFR) from serum creatinine in children is the Bedside Anderson equation. It is less accurate in patients with extremes of muscle mass, restriction of dietary protein, ingestion of creatine, extra-renal metabolism of creatinine, or treatment with medications that affect renal tubular creatinine secretion. Glucose [Mass/Vol] 108 mg/dL High 70 - 100 mg/dL [facility] Potassium [Moles/Vol] 6.0 mmol/L High 3.5 - 5.1 mmol/L [facility] Sodium [Moles/Vol] 138 mmol/L 135 - 145 mmol/L [facility] Urea nitrogen (BldV) [Mass/Vol] 14 mg/dL 7 - 17 mg/dL [facility] CBC with Auto Differentialon 02-07-2022 Absolute Baso # 0.0 10*3/uL 0 - 0.2 10*3/uL [facility] Absolute Neut # 6.6 10*3/uL 1.8 - 7 10*3/uL [facility] Basophils/100 WBC (Bld) 0.3 % 0 - 2 % [facility] Eosinophils (Bld) [#/Vol] 0.1 10*3/uL 0 - 0.5 10*3/uL [facility] Eosinophils/100 WBC (Bld) 0.6 % Low 1 - 6 % [facility] Granulocytes/100 WBC (Bld) 69.3 % 40 - 80 % [facility] Hematocrit (Bld) [Volume fraction] 48.0 % 40 - 52 % [facility] Hemoglobin (Bld) [Mass/Vol] 16.4 g/dL 13 - 18 g/dL [facility] Interpretation and review of laboratory results Abnormal [facility] Lymphocytes (Bld) [#/Vol] 1.7 10*3/uL 1 - 4.3 10*3/uL [facility] Lymphocytes/100 WBC (Bld) 17.7 % Low 20 - 40 % [facility] MCH (RBC) [Entitic mass] 32.8 pg 26 - 34 pg [facility] MCHC (RBC) [Mass/Vol] 34.1 % 32 - 36 % [facility] MCV (RBC) [Entitic vol] 96.2 fL 80 - 98 fL [facility] Monocytes (Bld) [#/Vol] 1.2 10*3/uL High 0 - 0.8 10*3/uL [facility] Monocytes/100 WBC (Bld) 12.1 % High 2 - 10 % [facility] Platelet distribution width (Bld) [Ratio] 14.0 % 11.5 - 14.5 % [facility] Platelet mean volume (Bld) [Entitic vol] 10.3 fL 7.4 - 12.4 fL [facility] Comment on above: MPV is a calculated measurement using platelet volume ratio. Platelets (Bld) [#/Vol] 139 10*3/uL Low 140 - 440 10*3/uL [facility] RBC (Bld) [#/Vol] 4.99 10*6/uL 4.4 - 5.9 10*6/uL [facility] WBC (Bld) [#/Vol] 9.5 10*3/uL 3.6 - 10.7 10*3/uL [facility] Test Performed by [facility], [address], [place], [place] [address] [facility] CK [Catalytic activity/Vol] 26 U/L Low 30-170 [facility] Comment on above: Performed By: #### K 3, DEEPAKN, CK3 #### [facility] [address] [place] [address] CK [Catalytic activity/Vol] 26 U/L Low 30 - 170 U/L [facility] Interpretation and review of laboratory results Abnormal [facility] COVID and Resp PCR Panelon 0 02-07-2022 SARS-CoV-2 (COVID-19) RNA ALONA+probe Ql (Unsp spec) COVID and Resp PCR Panel --> Status: F NEGATIVE: No targets were detected by the [employer] Upper Respiratory Pathogens PCR Panel. _ Expected Result: Not Detected The [employer] Upper Respiratory Pathogens PCR Panel can detect the following targets: SARS-CoV-2, Adenovirus, Coronavirus 229E, Coronavirus HKU1, Coronavirus NL63, Coronavirus OC43, Human Metapneumovirus, Human Rhinovirus/Enterovirus, Influenza A, Influenza B, Parainfluenza Virus 1, Parainfluenza Virus 2, Parainfluenza Virus 3, Parainfluenza Virus 4, Respiratory Syncytial Virus, Bordetella pertussis, Bordetella parapertussis, Chlamydia pneumoniae, Mycoplasma pneumoniae. Method: Real-time PCR. Respiratory Pathogens PCR Panel. _ Expected Result: Not Detected The [employer] Upper Respiratory Pathogens PCR Panel can detect the following targets: SARS-CoV-2, Adenovirus, Coronavirus 229E, Coronavirus HKU1, Coronavirus NL63, Coronavirus OC43, Human Metapneumovirus, Human Rhinovirus/Enterovirus, Influenza A, Influenza B, Parainfluenza Virus 1, Parainfluenza Virus 2, Parainfluenza Virus 3, Parainfluenza Virus 4, Respiratory Syncytial Virus, Bordetella pertussis, Bordetella parapertussis, Chlamydia pneumoniae, Mycoplasma pneumoniae. Method: Real-time PCR. Normal [facility] Comment on above: Performed By: #### H EMDF, BMP3, LIPD2 #### [facility] [address] [place] [address] Complete Urinalysison 2021 Appearance (U) Clear Normal Clear [facility] Comment on above: Result Comment: . Performed By: #### C UA2 #### [facility] [address] [place] [address] Bilirubin,Urine Negative Normal Negative [facility] Comment on above: Result Comment: . Performed By: #### C UA2 #### [facility] [address] [place] [address] Color (U) Colorless Normal Lt. Yellow [facility] Comment on above: Result Comment: . Performed By: #### C UA2 #### [facility] [address] [place] [address] Glucose Ql (U) Normal Normal Normal (<70) [facility] Comment on above: Result Comment: . Performed By: #### C UA2 #### [facility] [address] [place] [address] Ketone,Urine Negative Normal Negative [facility] Comment on above: Result Comment: . Performed By: #### C UA2 #### [facility] [address] [place] [address] Leukocytes,Urine Negative Normal Negative [facility] Comment on above: Result Comment: . Performed By: #### C UA2 #### [facility] [address] [place] [address] Nitrites,Urine Negative Normal Negative [facility] Comment on above: Result Comment: . Performed By: #### C UA2 #### [place] [address] [place] [address] Occult Blood,Urine Negative Normal Negative [facility] Comment on above: Result Comment: . Performed By: #### C UA2 #### [place] [address] [place] [address] pH,Urine 7.5 Normal 5.0-8.0 [facility] Comment on above: Result Comment: . Performed By: #### C UA2 #### [facility] [address] [place] [address] Specific [place],Urine 1.007 Normal 1.005 - 1.030 [facility] Comment on above: Result Comment: . Performed By: #### C UA2 #### [facility] [address] [place] [address] Total Protein,Urine Negative Normal Negative [facility] Comment on above: Result Comment: . Performed By: #### C UA2 #### [facility] [address] [place] [address] Urobilinogen,Urine Normal Normal Normal (0-1) [facility] Comment on above: Result Comment: . Performed By: #### C UA2 #### [facility] [address] [place] [address] Hemogram w/ Autodiffon 02-07 Abs Baso Cnt 0.0 10*3/uL Normal 0.0-0.2 [facility] Comment on above: Performed By: #### H EMDF, BMP3, LIPD2 #### [facility] [address] [place] [address] Abs Neutrophile Cnt 6.6 10*3/uL Normal 1.8-7.0 [facility] Comment on above: Performed By: #### H EMDF, BMP3, LIPD2 #### [facility] [address] [place] [address] Basophils/100 WBC (Bld) 0.3 % Normal 0.0-2.0 [facility] Comment on above: Performed By: #### H EMDF, BMP3, LIPD2 #### [facility] [address] [place] [address] Eosinophils (Bld) [#/Vol] 0.1 10*3/uL Normal 0.0-0.5 [facility] Comment on above: Performed By: #### H EMDF, BMP3, LIPD2 #### [facility] [address] [place] [address] Eosinophils/100 WBC (Bld) 0.6 % Low 1.0-6.0 [facility] Comment on above: Performed By: #### H EMDF, BMP3, LIPD2 #### [facility] [address] [place] [address] Erythrocyte distribution width (RBC) [Ratio] 14.0 % Normal 11.5-14.5 [facility] Comment on above: Performed By: #### H EMDF, BMP3, LIPD2 #### [facility] [address] [place] [address] Granulocytes/100 WBC (Bld) 69.3 % Normal 40.0-80.0 [facility] Comment on above: Performed By: #### H EMDF, BMP3, LIPD2 #### [facility] [address] [place] [address] Hematocrit (Bld) [Volume fraction] 48.0 % Normal 40.0-52.0 [facility] Comment on above: Performed By: #### H EMDF, BMP3, LIPD2 #### [facility] [address] [place] [address] Hemoglobin (Bld) [Mass/Vol] 16.4 g/dL Normal 13.0-18.0 [facility] Comment on above: Performed By: #### H EMDF, BMP3, LIPD2 #### [facility] [address] [place] [address] Lymphocytes (Bld) [#/Vol] 1.7 10*3/uL Normal 1.0-4.3 [facility] Comment on above: Performed By: #### H EMDF, BMP3, LIPD2 #### [facility] [address] [place] [address] Lymphocytes/100 WBC (Bld) 17.7 % Low 20.0-40.0 [facility] Comment on above: Performed By: #### H EMDF, BMP3, LIPD2 #### [facility] [address] [place] [address] MCH (RBC) [Entitic mass] 32.8 pg Normal 26.0-34.0 [facility] Comment on above: Performed By: #### H EMDF, BMP3, LIPD2 #### [facility] [address] [place] [address] MCHC 34.1 % Normal 32.0-36.0 [facility] Comment on above: Performed By: #### H EMDF, BMP3, LIPD2 #### [facility] [address] [place] [address] MCV (RBC) [Entitic vol] 96.2 fL Normal 80.0-98.0 [facility] Comment on above: Performed By: #### H EMDF, BMP3, LIPD2 #### [facility] [address] [place] [address] Monocytes (Bld) [#/Vol] 1.2 10*3/uL High 0.0-0.8 [facility] Comment on above: Performed By: #### H EMDF, BMP3, LIPD2 #### [facility] [address] [place] [address] Monocytes/100 WBC (Bld) 12.1 % High 2.0-10.0 [facility] Comment on above: Performed By: #### H EMDF, BMP3, LIPD2 #### [facility] [address] [place] [address] Platelet mean volume (Bld) [Entitic vol] 10.3 fL Normal 7.4-12.4 [facility] Comment on above: Result Comment: MPV is a calculated measurement using platelet volume ratio. Performed By: #### H EMDF, BMP3, LIPD2 #### [facility] [address] [place] [address] Platelets (Bld) [#/Vol] 139 10*3/uL Low 140-440 [facility] Comment on above: Performed By: #### H EMDF, BMP3, LIPD2 #### [facility] [address] [place] [address] RBC (Bld) [#/Vol] 4.99 10*6/uL Normal 4.40-5.90 [facility] Comment on above: Performed By: #### H EMDF, BMP3, LIPD2 #### [facility] [address] [place] [address] WBC (Bld) [#/Vol] 9.5 10*3/uL Normal 3.6-10.7 [facility] Comment on above: Performed By: #### H EMDF, BMP3, LIPD2 #### [facility] [address] [place] [address] LIPID PANELon 02-07-2022 Cholesterol [Mass/Vol] 164 mg/dL NINF - 200 mg/dL [facility] Cholesterol in HDL [Mass/Vol] 56 mg/dL 40 - 60 mg/dL [facility] Cholesterol in LDL [Mass/Vol] 81 mg/dL NINF - 100 mg/dL [facility] Cholesterol.total/Ch olesterol in HDL [Mass ratio] 3 {ratio} [facility] Comment on above: Ref Range: < 3 Low Risk for CHD 3-6 Mod Risk for CHD > 6 High Risk for CHD Triglyceride [Mass/Vol] 136 mg/dL NINF - 150 mg/dL [facility] Lipid Panelon 02-07-2022 Chol/HDL 3 Normal [facility] Comment on above: Result Comment: Ref Range: < 3 Low Risk for CHD 3-6 Mod Risk for CHD > 6 High Risk for CHD Performed By: #### H EMDF, BMP3, LIPD2 #### [facility] [address] [place] [address] Cholesterol in HDL [Mass/Vol] 56 mg/dL Normal 40-60 [facility] Comment on above: Performed By: #### H EMDF, BMP3, LIPD2 #### [facility] [address] [place] [address] Low Density Lipoprotein 81 mg/dL Normal <100 [facility] Comment on above: Performed By: #### H EMDF, BMP3, LIPD2 #### [facility] [address] [place] [address] Triglyceride [Mass/Vol] 136 mg/dL Normal <150 [facility] Comment on above: Performed By: #### H EMDF, BMP3, LIPD2 #### [facility] [address] [place] [address] Cholesterol [Mass/Vol] 164 mg/dL Normal < 200 [facility] Comment on above: Performed By: #### H EMDF, BMP3, LIPD2 #### [facility] [address] [place] [address] [place] Cardiac Stress Test Nucle ar Imagingon 02-07-2022 Nuclear Stress Myocardial Perfusion Study Regadenoson Protocol Gated SPECT Patient: Nidhi Briggs Height: (69 in) Weight: (170.1 lb) : 1945 Age: 76 Gender: M Study Date: 02/07/2022 Accession#: Patient Room #: *ORDERING PHYSICIAN: * Francesca Cyr *SUPERVISING PHYSICIAN: * Conner Deal *RADIOLOGIST: * Joseph Lino MD *NUCLEAR TECH: * Toya Escobar Jennifer *READING PHYSICIAN: * Bert Hunter MD -- Indications: EKG ABN. -- Summary: 1. Myocardial Perfusion Imaging: No induced ischemia related changes. Large inferior scar. 2. Stress ECG conclusions: The stress ECG is nondiagnostic due to resting ST/T. Radiologist Confirmation: This is a combined report. The ECG portion of the study was interpreted and reported by the engraver pantograph and the perfusion imaging portion of the study was interpreted and reported by Joseph Lino MD on 02/07/2022 04:05 PM. -- History: Hypertension treated. Medications: Atorvastatin (Lipitor). Amlodipine (Norvasc). Hydrochlorothiazide (Microzide). Pantoprazole (Protonix). Celexa. Allergies: Rampiril,Sulfa,Beta Chris allergy. Dyslipidemia. Myocardial infarction. Family history of cardiovascular disease. Patient is NPO per policy. No caffeine per policy. Medication list reviewed with patient and no contraindicated medications have been taken. Hemoglobin, potassium and/or troponin x2 are outside policy guidelines. Physician order to proceed obtained. Catheterization (2013). There was a stenosis which was treated with a stent. Coronary artery bypass grafting (2003). -- Study data: Bra or chest circumference is 42 in. The patient's lungs are clear to auscultation. Heart auscultation by RN revealed a regular rate and rhythm. Pre pain assessment is 0 out of 10. Post pain assessment is 0 out of 10. Patient status: Observation. Gated SPECT; rest/stress. One-day Sestamibi. Consent: The procedure was reviewed with the patient and the patient voices understanding. Study completion: The patient tolerated the procedure well. There were no complications. Administered medications: Regadenoson, 0.4mg, bolus, IV, during the study. Discharge: Discharge instruction given. The patient was transferred to [facility]. -- Procedure data: Initial setup. The patient was brought to the laboratory. A baseline ECG was recorded. Surface ECG leads and blood pressure measurements were monitored. IV access verified 20ga,RAC. IV patent, site benign. Regadenoson stress test. Stress testing was performed, with regadenoson by intravenous bolus at one minute into the protocol, for a total dose of 0.4mgover 10.00 sec, followed by a 5 ml saline flush. Exercise for 4 minutes completed by low level exercise. The infusion was terminated due to end of protocol. A pharmacologic approach was used because the patient was physically unable to exercise. -- Baseline ECG: Normal sinus rhythm. Nonspecific ST and T wave changes. Stress protocol: + +---+---- --------+ +- -------+ +Stage +HR +BP +Symptoms +Comments+ + +---+---- --------+ +- -------+ +Rest +78 +137/86 (103)+No symptoms.+PO2 97% + + +---+---- --------+ +- -------+ +Peak stress +100+149/80 (103)+Flushing. +PO2 94% + + +---+---- --------+ +- -------+ +Recovery +78 +137/77 (97) +Subsiding. +PO2 96% + + +---+---- --------+ +- -------+ +Late recovery+81 +104/79 (87) +No symptoms.+PO2 96% + + +---+---- --------+ +- -------+ Stress results: Peak heart rate during stress was 100 bpm. (70% of maximal predicted heart rate). The maximal predicted heart rate was 143 bpm.The heart rate response to stress is normal. There is an appropriate response to stress. The rate-pressure product for the peak heart rate and blood pressure was 19141 mm Hg/min. Stress testing did not produce any symptoms suggestive of coronary artery disease. Stress ECG: There are no stress arrhythmias or conduction abnormalities. The stress ECG is nondiagnostic due to resting ST/T. Isotope administration: + +------- ---------+ + +Stage +Rest +Stress + + +------- ------ (more content not included)... [facility] Bert Hunter MD - 02/07/2022 Nuclear Stress Myocardial Perfusion Study Regadenoson Protocol Gated SPECT Patient: Nidhi Briggs Height: (69 in) Weight: (170.1 lb) : 1945 Age: 76 Gender: M Study Date: 02/07/2022 Accession#: Patient Room #: *ORDERING PHYSICIAN: * Francesca Cyr *SUPERVISING PHYSICIAN: * Conner Deal *RADIOLOGIST: * Joseph Lino MD *NUCLEAR TECH: * Toya Escobar Jennifer *READING PHYSICIAN: * Bert Hunter MD -- Indications: EKG ABN. -- Summary: 1. Myocardial Perfusion Imaging: No induced ischemia related changes. Large inferior scar. 2. Stress ECG conclusions: The stress ECG is nondiagnostic due to resting ST/T. Radiologist Confirmation: This is a combined report. The ECG portion of the study was interpreted and reported by the engraver pantograph and the perfusion imaging portion of the study was interpreted and reported by Joseph Lino MD on 02/07/2022 04:05 PM. -- History: Hypertension treated. Medications: Atorvastatin (Lipitor). Amlodipine (Norvasc). Hydrochlorothiazide (Microzide). Pantoprazole (Protonix). Celexa. Allergies: Rampiril,Sulfa,Beta Chris allergy. Dyslipidemia. Myocardial infarction. Family history of cardiovascular disease. Patient is NPO per policy. No caffeine per policy. Medication list reviewed with patient and no contraindicated medications have been taken. Hemoglobin, potassium and/or troponin x2 are outside policy guidelines. Physician order to proceed obtained. Catheterization (2013). There was a stenosis which was treated with a stent. Coronary artery bypass grafting (2003). -- Study data: Bra or chest circumference is 42 in. The patient's lungs are clear to auscultation. Heart auscultation by RN revealed a regular rate and rhythm. Pre pain assessment is 0 out of 10. Post pain assessment is 0 out of 10. Patient status: Observation. Gated SPECT; rest/stress. One-day Sestamibi. Consent: The procedure was reviewed with the patient and the patient voices understanding. Study completion: The patient tolerated the procedure well. There were no complications. Administered medications: Regadenoson, 0.4mg, bolus, IV, during the study. Discharge: Discharge instruction given. The patient was transferred to [facility]. -- Procedure data: Initial setup. The patient was brought to the laboratory. A baseline ECG was recorded. Surface ECG leads and blood pressure measurements were monitored. IV access verified 20ga,RAC. IV patent, site benign. Regadenoson stress test. Stress testing was performed, with regadenoson by intravenous bolus at one minute into the protocol, for a total dose of 0.4mgover 10.00 sec, followed by a 5 ml saline flush. Exercise for 4 minutes completed by low level exercise. The infusion was terminated due to end of protocol. A pharmacologic approach was used because the patient was physically unable to exercise. -- Baseline ECG: Normal sinus rhythm. Nonspecific ST and T wave changes. Stress protocol: + +---+---- --------+ +- -------+ +Stage +HR +BP +Symptoms +Comments+ + +---+---- --------+ +- -------+ +Rest +78 +137/86 (103)+No symptoms.+PO2 97% + + +---+---- --------+ +- -------+ +Peak stress +100+149/80 (103)+Flushing. +PO2 94% + + +---+---- --------+ +- -------+ +Recovery +78 +137/77 (97) +Subsiding. +PO2 96% + + +---+---- --------+ +- -------+ +Late recovery+81 +104/79 (87) +No symptoms.+PO2 96% + + +---+---- --------+ +- -------+ Stress results: Peak heart rate during stress was 100 bpm. (70% of maximal predicted heart rate). The maximal predicted heart rate was 143 bpm.The heart rate response to stress is normal. There is an appropriate response to stress. The rate-pressure product for the peak heart rate and blood pressure was 51217 mm Hg/min. Stress testing did not produce any symptoms suggestive of coronary artery disease. Stress ECG: There are no stress arrhythmias or conduction abnormalities. The stress ECG is nondiagnostic due to resting ST/T. Isotope administration: + +------- ---------+ + +Stage +Rest +Stress + + +------- ---------+ + +Agent +Tc-99m sestamibi+Tc-99m sestamibi + + +------- ---------+ + + (more content not included)... [employer] Work Phone: NM Cardiac Stress Test Nucle ar ImagingOrdered By: Bert Hunter on 02-07-2022 [employer] Work Phone: NM Myocardial Perf Imaging M ulti Specton 02-07-2022 NM Myocardial Perf Imaging Multi Spect Patient Name: NIDHI BRIGGS Nuclear Medicine ACCESSION EXAM DATE/TIME PROCEDURE ORDERING PROVIDER [id number] 02/07/2022 12:34 EDT NM Myocardial Perf MANFRED CYR JENNIFER Imaging Multi Spect L. CPT code 96001 37629 A9500 Reason For Exam (NM Myocardial Perf Imaging Multi Spect) EKG abnormalities Report Nuclear Stress Myocardial Perfusion Study Regadenoson Protocol Gated SPECT Patient: Nidhi Briggs Height: (69 in) Weight: (170.1 lb) : 1945 Age: 76 Gender: M Study Date: 02/07/2022 Accession#: Patient Room #: *ORDERING PHYSICIAN: * Francesca Cyr *SUPERVISING PHYSICIAN: * Conner Deal *RADIOLOGIST: * Joseph Lino MD *NUCLEAR TECH: * Toya Escobar Jennifer *READING PHYSICIAN: * Bert Hunter MD -- Indications: EKG ABN. -- Summary: 1. Myocardial Perfusion Imaging: No induced ischemia related changes. Large inferior scar. 2. Stress ECG conclusions: The stress ECG is nondiagnostic due to resting ST/T. Radiologist Confirmation: This is a combined report. The ECG portion of the study was interpreted and reported by the engraver pantograph and the perfusion imaging portion of the study was interpreted and reported by Joseph Lino MD on 02/07/2022 04:05 PM. -- History: Hypertension treated. Medications: Atorvastatin (Lipitor). Amlodipine (Norvasc). Hydrochlorothiazide (Microzide). Pantoprazole Nuclear Medicine Report (Protonix). Celexa. Allergies: Rampiril,Sulfa,Beta Chris allergy. Dyslipidemia. Myocardial infarction. Family history of cardiovascular disease. Patient is NPO per policy. No caffeine per policy. Medication list reviewed with patient and no contraindicated medications have been taken. Hemoglobin, potassium and/or troponin x2 are outside policy guidelines. Physician order to proceed obtained. Catheterization (2013). There was a stenosis which was treated with a stent. Coronary artery bypass grafting (2003). -- Study data: Bra or chest circumference is 42 in. The patient's lungs are clear to auscultation. Heart auscultation by RN revealed a regular rate and rhythm. Pre pain assessment is 0 out of 10. Post pain assessment is 0 out of 10. Patient status: Observation. Gated SPECT; rest/stress. One-day Sestamibi. Consent: The procedure was reviewed with the patient and the patient voices understanding. Study completion: The patient tolerated the procedure well. There were no complications. Administered medications: Regadenoson, 0.4mg, bolus, IV, during the study. Discharge: Discharge instruction given. The patient was transferred to [facility]. -- Procedure data: Initial setup. The patient was brought to the laboratory. A baseline ECG was recorded. Surface ECG leads and blood pressure measurements were monitored. IV access verified 20ga,RAC. IV patent, site benign. Regadenoson stress test. Stress testing was performed, with regadenoson by intravenous bolus at one minute into the protocol, for a total dose of 0.4mgover 10.00 sec, followed by a 5 ml saline flush. Exercise for 4 minutes completed by low level exercise. The infusion was terminated due to end of protocol. A pharmacologic approach was used because the patient was physically unable to exercise. -- Baseline ECG: Normal sinus rhythm. Nonspecific ST and T wave changes. Stress protocol: + +---+---- --------+ +- -------+ +Stage +HR +BP +Symptoms +Comments+ + +---+---- --------+ +- -------+ +Rest +78 +137/86 (103)+No symptoms.+PO2 97% + + +---+---- --------+ +- -------+ +Peak stress +100+149/80 (103)+Flushing. +PO2 94% + + +---+---- --------+ +- -------+ +Recovery +78 +137/77 (97) +Subsiding. +PO2 96% + + +---+---- --------+ +- -------+ +Late recovery+81 +104/79 (87) +No symptoms.+PO2 96% + + +---+---- --------+ +- -------+ Stress results: Peak heart rate during stress was 100 bpm. (70% of maximal predicted heart rate). The maximal predicted heart rate was 143 bpm.The heart rate response to stress is normal. There is an appropriate response to stress. The rate-pressure product for the peak heart rate and blood pressure was 37103 mm Hg/min. Stress testing did not produce any symptoms suggestive of coronary artery disease. Stress ECG: There are no stress arrhythmias or conduction abnormalities. The stress ECG is nondiagnostic due to resting ST/T. (more content not included)... Normal [employer] [facility] NM Rad Signatureon 2 NM Rad Signature Patient Name: NIDHI BRIGGS Nuclear Medicine ACCESSION EXAM DATE/TIME PROCEDURE ORDERING PROVIDER [id number] 02/07/2022 11:35 EDT NM Rad Signature SIGNATURE, RAD NM Reason For Exam (NM Rad Signature) Rad signature Report -- Indications: EKG ABN. -- Summary: 1. Myocardial Perfusion Imaging: No induced ischemia related changes. Large inferior scar. 2. Stress ECG conclusions: The stress ECG is nondiagnostic due to resting ST/T. Radiologist Confirmation: This is a combined report. The ECG portion of the study was interpreted and reported by the engraver pantograph and the perfusion imaging portion of the study was interpreted and reported by Joseph Lino MD on 02/07/2022 04:05 PM. -- History: Hypertension treated. Medications: Atorvastatin (Lipitor). Amlodipine (Norvasc). Hydrochlorothiazide (Microzide). Pantoprazole (Protonix). Celexa. Allergies: Rampiril,Sulfa,Beta Chris allergy. Dyslipidemia. Myocardial infarction. Family history of cardiovascular disease. Patient is NPO per policy. No caffeine per policy. Medication list reviewed with patient and no contraindicated medications have been taken. Hemoglobin, potassium and/or troponin x2 are outside policy guidelines. Physician order to proceed obtained. Catheterization (2013). There was a stenosis which was treated with a stent. Coronary artery bypass grafting (2003). -- Study data: Bra or chest circumference is 42 in. The patient's lungs are clear to auscultation. Heart auscultation by RN revealed a regular rate and rhythm. Pre pain assessment is 0 out of 10. Post pain assessment is 0 out of 10. Patient status: Observation. Gated SPECT; rest/stress. One-day Sestamibi. Consent: The procedure was reviewed with the patient and the patient voices understanding. Study completion: The patient tolerated the procedure well. There were no complications. Administered medications: Regadenoson, 0.4mg, bolus, IV, during the study. Discharge: Discharge instruction given. The patient was transferred to [facility]. -- Procedure data: Initial setup. The patient was brought to the laboratory. A baseline ECG was recorded. Surface ECG leads and blood pressure measurements were monitored. IV access verified 20ga,RAC. IV patent, site benign. Regadenoson stress test. Stress testing was performed, with regadenoson by intravenous bolus at one minute into the protocol, for a total dose of 0.4mgover 10.00 sec, followed by a 5 ml Nuclear Medicine Report saline flush. Exercise for 4 minutes completed by low level exercise. The infusion was terminated due to end of protocol. A pharmacologic approach was used because the patient was physically unable to exercise. -- Baseline ECG: Normal sinus rhythm. Nonspecific ST and T wave changes. Stress protocol: + +---+---- --------+ +- -------+ +Stage +HR +BP +Symptoms +Comments+ + +---+---- --------+ +- -------+ +Rest +78 +137/86 (103)+No symptoms.+PO2 97% + + +---+---- --------+ +- -------+ +Peak stress +100+149/80 (103)+Flushing. +PO2 94% + + +---+---- --------+ +- -------+ +Recovery +78 +137/77 (97) +Subsiding. +PO2 96% + + +---+---- --------+ +- -------+ +Late recovery+81 +104/79 (87) +No symptoms.+PO2 96% + + +---+---- --------+ +- -------+ Stress results: Peak heart rate during stress was 100 bpm. (70% of maximal predicted heart rate). The maximal predicted heart rate was 143 bpm.The heart rate response to stress is normal. There is an appropriate response to stress. The rate-pressure product for the peak heart rate and blood pressure was 11658 mm Hg/min. Stress testing did not produce any symptoms suggestive of coronary artery disease. Stress ECG: There are no stress arrhythmias or conduction abnormalities. The stress ECG is nondiagnostic due to resting ST/T. Isotope administration: + +------- ---------+ + +Stage +Rest +Stress + + +------- ---------+ + +Agent +Tc-99m sestamibi+Tc-99m sestamibi + + +------- ---------+ + +Injected dose +7.0 mCi +20.5 mCi + + +------- ---------+ + +Date +02/07/2022 +02/07/2022 + + +------- ---------+ + +Injection time+11:04 AM +12:00 PM + + +------- ---------+ ------- (more content not included)... Normal [facility] No Panel Informationon 02-07 Test Performed by [facility], [address], [address] [facility] Interpretation and review of laboratory results Abnormal [facility] Test Performed by [facility], [address], [address] [facility] Potassiumon 02-07-2022 Potassium [Moles/Vol] 4.3 mmol/L Normal 3.5-5.1 [facility] Comment on above: Performed By: #### K 3, AUSTIN, CK3 #### [facility] [address] [place] [address] Potassium [Moles/Vol] 4.3 mmol/L 3.5 - 5.1 mmol/L [facility] Respiratory Panel, Molecular , with COVID-19 (Restricted: peds pts or suitable admitted adults)on 02-07-2022 Respiratory Panel Molecular, with COVID NEGATIVE: No targets were detected by the [employer] Upper Respiratory Pathogens PCR Panel. _ Expected Result: Not Detected The [employer] Upper Respiratory Pathogens PCR Panel can detect the following targets: SARS-CoV-2, Adenovirus, Coronavirus 229E, Coronavirus HKU1, Coronavirus NL63, Coronavirus OC43, Human Metapneumovirus, Human Rhinovirus/Enterovirus, Influenza A, Influenza B, Parainfluenza Virus 1, Parainfluenza Virus 2, Parainfluenza Virus 3, Parainfluenza Virus 4, Respiratory Syncytial Virus, Bordetella pertussis, Bordetella parapertussis, Chlamydia pneumoniae, Mycoplasma pneumoniae. Method: Real-time PCR. [facility] Test Performed by [facility], [address] [place] [address] LAB [facility] Troponinon 02-07-2022 Troponin I.cardiac [Mass/Vol] 0.028 ng/mL 0 - 0.034 ng/mL [facility] Comment on above: . Test Performed by [facility], [address] [facility] Interpretation and review of laboratory results Abnormal [facility] Troponin I.cardiac [Mass/Vol] 0.036 ng/mL High 0 - 0.034 ng/mL [facility] Comment on above: . Test Performed by [facility], [address] LAB [facility] Troponin I.cardiac [Mass/Vol] 0.041 ng/mL High 0 - 0.034 ng/mL [facility] Comment on above: . Troponin I.cardiac [Mass/Vol] 0.029 ng/mL 0 - 0.034 ng/mL [facility] Comment on above: . Test Performed by [facility], [address] [place], [place] [address] [place] [address] LAB [facility] Troponin Ion 02-07-2022 Troponin I.cardiac [Mass/Vol] 0.028 ng/mL Normal 0.000-0.034 [facility] Comment on above: Result Comment: . Performed By: #### T ROPN #### [facility] [address] [place] [address] Troponin I.cardiac [Mass/Vol] 0.036 ng/mL High 0.000-0.034 [facility] Comment on above: Result Comment: . Performed By: #### K 3, TROPN, CK3 #### [facility] [address] [place] [address] Troponin I.cardiac [Mass/Vol] 0.041 ng/mL High 0.000-0.034 [facility] Comment on above: Result Comment: . Performed By: #### T ROPN #### [facility] [address] [place] [address] Troponin I.cardiac [Mass/Vol] 0.029 ng/mL Normal 0.000-0.034 [facility] Comment on above: Result Comment: . Performed By: #### H EMDF, BMP3, LIPD2 #### [facility] [address] [place] [address] Brain Natriuretic Peptideon 02-06-2022 Interpretation and review of laboratory results Abnormal [facility] Natriuretic peptide B (Bld) [Mass/Vol] 635 pg/mL High 0 - 450 pg/mL [facility] CBC with Auto Differentialon 02-06-2022 Absolute Baso # 0.1 10*3/uL 0 - 0.2 10*3/uL [facility] Absolute Neut # 7.5 10*3/uL High 1.8 - 7 10*3/uL [facility] Basophils/100 WBC (Bld) 0.7 % 0 - 2 % [facility] Eosinophils (Bld) [#/Vol] 0.1 10*3/uL 0 - 0.5 10*3/uL [facility] Eosinophils/100 WBC (Bld) 0.7 % Low 1 - 6 % [facility] Granulocytes/100 WBC (Bld) 73.1 % 40 - 80 % [facility] Hematocrit (Bld) [Volume fraction] 48.8 % 40 - 52 % [facility] Hemoglobin (Bld) [Mass/Vol] 16.7 g/dL 13 - 18 g/dL [facility] Interpretation and review of laboratory results Abnormal [facility] Lymphocytes (Bld) [#/Vol] 1.5 10*3/uL 1 - 4.3 10*3/uL [facility] Lymphocytes/100 WBC (Bld) 15.0 % Low 20 - 40 % [facility] MCH (RBC) [Entitic mass] 33.0 pg 26 - 34 pg [facility] MCHC (RBC) [Mass/Vol] 34.3 % 32 - 36 % [facility] MCV (RBC) [Entitic vol] 96.2 fL 80 - 98 fL [facility] Monocytes (Bld) [#/Vol] 1.1 10*3/uL High 0 - 0.8 10*3/uL [facility] Monocytes/100 WBC (Bld) 10.5 % High 2 - 10 % [facility] Platelet distribution width (Bld) [Ratio] 14.2 % 11.5 - 14.5 % [facility] Platelet mean volume (Bld) [Entitic vol] 10.0 fL 7.4 - 12.4 fL [facility] Comment on above: MPV is a calculated measurement using platelet volume ratio. Platelets (Bld) [#/Vol] 138 10*3/uL Low 140 - 440 10*3/uL [facility] RBC (Bld) [#/Vol] 5.07 10*6/uL 4.4 - 5.9 10*6/uL [facility] WBC (Bld) [#/Vol] 10.2 10*3/uL 3.6 - 10.7 10*3/uL [facility] Test Performed by [facility], [address] [place], [place] [id number] [place] [address] LAB [facility] CR Chest Portableon 02-07-20 22 CR Chest Portable Patient Name: NIDHI BRIGGS Diagnostic Radiology ACCESSION EXAM DATE/TIME PROCEDURE ORDERING PROVIDER [id number] 02/06/2022 18:35 EDT CR Chest Portable [id number] -DHAVAL CEBALLOS CPT code 98284 Reason For Exam (CR Chest Portable) Weakness Report PORTABLE CHEST (Frontal View) History: Respiratory abnormality Comparison: None available Findings: Frontal portable chest view shows coarsening lung markings without acute infiltrate or congestion. The heart is mildly enlarged with median sternotomy and surgical clips noted. There is no mediastinal widening or pleural effusion. IMPRESSION: Mild cardiac enlargement. No acute pulmonary process. Report Dictated on Final Dictating Physician: MD CLIFFORD AHMAD Signed Date and Time: 02/06/2022 7:06 pm Signed by: MD CLIFFORD AHMAD Transcribed Date and Time: 02/06/2022 7:07 Normal [facility] Comp Metabolic Panelon 02-06 ALP [Catalytic activity/Vol] 121 U/L Normal 38-126 [facility] Comment on above: Performed By: #### H EMDF, BMP3, LIPD2 #### [facility] [address] [place] [address] Protein [Mass/Vol] 7.5 g/dL Normal 6.3-8.2 [facility] Comment on above: Performed By: #### H EMDF, BMP3, LIPD2 #### [facility] [address] [place] [address] Urea nitrogen [Mass/Vol] 15 mg/dL Normal 7-17 [facility] Comment on above: Performed By: #### H EMDF, BMP3, LIPD2 #### [facility] [address] [place] [address] Anion gap [Moles/Vol] 3 mmol/L Normal 3-13 [facility] Comment on above: Performed By: #### H EMDF, BMP3, LIPD2 #### [facility] [address] [place] [address] AST [Catalytic activity/Vol] 39 U/L Normal 15-46 [facility] Comment on above: Performed By: #### H EMDF, BMP3, LIPD2 #### [facility] [address] [place] [address] Bilirubin [Mass/Vol] 0.7 mg/dL Normal 0.2-1.3 [facility] Comment on above: Performed By: #### H EMDF, BMP3, LIPD2 #### [facility] [address] [place] [address] CO2 [Moles/Vol] 35 mmol/L High 22-30 [facility] Comment on above: Performed By: #### H EMDF, BMP3, LIPD2 #### [facility] [address] [place] [address] Creatinine [Mass/Vol] 0.81 mg/dL Normal 0.52-1.25 [facility] Comment on above: Performed By: #### H EMDF, BMP3, LIPD2 #### [facility] [address] [place] [address] GFR/1.73 sq M.predicted among blacks MDRD (S/P/Bld) [Vol rate/Area] mL/min/{1.73_m2} Normal >60 [facility] Comment on above: Performed By: #### H EMDF, BMP3, LIPD2 #### [facility] [address] [place] [address] GFR/1.73 sq M.predicted among non-blacks MDRD (S/P/Bld) [Vol rate/Area] 85.6 mL/min/{1.73_m2} Normal >60 [facility] Comment on above: Result Comment: KDIG O guidelines provide the following GFR categories: Stage GFR(ml/min/1.73 m2) Terms G1 >=90 Normal or high G2 60-89 Mildly decreased* G3a 45-59 Mildly to moderately decreased G3b 30-44 Moderately to severely decreased G4 15-29 Severely decreased G5 <15 Kidney failure *Relative to young adult level. In the absence of evidence of kidney damage, neither GFR category G1 nor G2 fulfill the criteria for CKD. The CKD-EPI equation is validated in individuals 18 years of age and older. Currently the best equation for estimating glomerular filtration rate (GFR) from serum creatinine in children is the Bedside Anderson equation. It is less accurate in patients with extremes of muscle mass, restriction of dietary protein, ingestion of creatine, extra-renal metabolism of creatinine, or treatment with medications that affect renal tubular creatinine secretion. Performed By: #### H EMDF, BMP3, LIPD2 #### [facility] [address] [place] [address] Chloride [Moles/Vol] 97 mmol/L Low 98-107 [facility] Comment on above: Performed By: #### H EMDF, BMP3, LIPD2 #### [facility] [address] [place] [address] Potassium [Moles/Vol] 4.1 mmol/L Normal 3.5-5.1 [facility] Comment on above: Performed By: #### H EMDF, BMP3, LIPD2 #### [facility] [address] [place] [address] Sodium [Moles/Vol] 135 mmol/L Normal 135-145 [facility] Comment on above: Performed By: #### H EMDF, BMP3, LIPD2 #### [facility] [address] [place] [address] Albumin [Mass/Vol] 4.4 g/dL Normal 3.5-5.0 [facility] Comment on above: Performed By: #### H EMDF, BMP3, LIPD2 #### [facility] [address] [place] [address] ALT [Catalytic activity/Vol] 68 U/L High 0-49 [facility] Comment on above: The ALT test is perf ormed by an updated assay method. Please note that the reference intervals have been changed and are now sex specific. Result Comment: The ALT test is performed by an updated assay method. Please note that the reference intervals have been changed and are now sex specific. Performed By: #### H EMDF, BMP3, LIPD2 #### [facility] [address] [place] [address] Calcium [Mass/Vol] 9.3 mg/dL Normal 8.4-10.4 [facility] Comment on above: Performed By: #### H EMDF, BMP3, LIPD2 #### [facility] [address] [place] [address] Glucose [Mass/Vol] 125 mg/dL High 70-100 [facility] Comment on above: Performed By: #### H EMDF, BMP3, LIPD2 #### [facility] [address] [place] [address] Comprehensive Metabolic Pane keagan 02-06-2022 Albumin [Mass/Vol] 4.4 g/dL 3.5 - 5 g/dL [facility] A ALP (Bld) [Catalytic activity/Vol] 121 U/L 38 - 126 U/L [facility] Anion gap [Moles/Vol] 3 mmol/L 3 - 13 mmol/L [facility] AST [Catalytic activity/Vol] 39 U/L 15 - 46 U/L [facility] Bilirubin [Mass/Vol] 0.7 mg/dL 0.2 - 1 .3 mg/dL [facility] Chloride [Moles/Vol] 97 mmol/L Low 98 - 10 7 mmol/L [facility] CO2 [Moles/Vol] 35 mmol/L High 22 - 30 mmol/L [facility] Creatinine [Mass/Vol] 0.81 mg/dL 0.52 - 1.25 mg/dL [facility] eGFR mL/min 60 - PINF mL/min [facility] EGFR IF NonAfrican Austrian 85.6 mL/min 60 - PINF mL/min [facility] Comment on above: KDIGO guidelines pro vide the following GFR categories: Stage GFR(ml/min/1.73 m2) Terms G1 >=90 Normal or high G2 60-89 Mildly decreased* G3a 45-59 Mildly to moderately decreased G3b 30-44 Moderately to severely decreased G4 15-29 Severely decreased G5 <15 Kidney failure *Relative to young adult level. In the absence of evidence of kidney damage, neither GFR category G1 nor G2 fulfill the criteria for CKD. The CKD-EPI equation is validated in individuals 18 years of age and older. Currently the best equation for estimating glomerular filtration rate (GFR) from serum creatinine in children is the Bedside Anderson equation. It is less accurate in patients with extremes of muscle mass, restriction of dietary protein, ingestion of creatine, extra-renal metabolism of creatinine, or treatment with medications that affect renal tubular creatinine secretion. Free PSA/Total PSA [Mass fraction] 7.5 g/dL 6.3 - 8.2 g/dL [facility] Interpretation and review of laboratory results Abnormal [facility] Potassium [Moles/Vol] 4.1 mmol/L 3.5 - 5.1 mmol/L [facility] Sodium [Moles/Vol] 135 mmol/L 135 - 145 mmol/L [facility] Urea nitrogen (BldV) [Mass/Vol] 15 mg/dL 7 - 17 mg/dL [facility] Test Performed by [facility], [address] LAB [facility] ED Provider Noteon 2 ED Provider Note Patient, Nidhi Goodman tt, is seen and examined in conjunction with advanced practice practitioner. I independently performed history, physical exam, admitted all diagnostic treatment and disposition decisions. In brief their history revealed profound generalized weakness for the past few days. Patient tells me that 20 years ago he had a similar sensation, at that time was diagnosed with a heart attack and underwent coronary artery bypass graft. Never had chest pain or shortness of breath at that time. Does not have chest pain or shortness of breath now. About 8 years ago, he did have a more traditional chest pain presentation and had cardiac stents. Patient saw his primary care provider, what sounds like an advanced practice nurse in [place]. Had an EKG done that was abnormal and referred to the ER. Their focused exam revealed awake, alert, no distress. Vital signs are benign. Lungs are clear and unlabored. Heart tones are regular. ED course: EKG showed sinus rhythm 64 bpm. LVH with secondary repolarization abnormality. Left atrial abnormality. No prior for comparison. Chest x-ray showed mild cardiomegaly. I personally viewed the image. Troponin normal. proBNP 635. CBC and CMP had minor abnormalities. Concern for possible anginal equivalent. We will talk to the hospitalist and/or AMARILIS in the CDU to discuss admission for further evaluation and treatment. Patients symptoms are consistent with sepsis, severe sepsis, or septic shock (If yes use .sepsiscoremeasure ): 0 All diagnostic, treatment, and disposition decisions were made by myself in conjunction with the mid-level provider. I, Tom Adams MD, am the primary physician of record. This will serve as my Supervisory note and shared attestation. I did perform a substantive portion of the visit including all aspects of the Medical Decision Making. For all further details of the patient's emergency department visit, please see the advance practice provider's documentation. Tom Adams MD 02/06/222027 Normal [facility] ED Provider Note Emergency DepartmentEncounter [facility] ED Patient: Nidhi Briggs : 1945 Date of Evaluation: 02/06/2022 ED AMARILIS Provider: KRISTI Rosarioare was supervised by Dr. Adams who independently examined and evaluated the patient. Please see their attestation note for further details. Chief Complaint Chief Complaint Patient presents with Irregular Heart Beat [place] I was wearing a N95, Surgical mask for the entirety of this encounter. Nidhi Briggs is a 76 y.o. male who presents to the emergency department for weakness for the past 3 days. Patient went to his PCP earlier today and was sent to the ED for an abnormal EKG. Patient said he has had 2 previous heart attacks where his main symptom was weakness. Most recent was in 2003 where he had a stent placed. Patient said he feels very tired. Patient also states he started developing petechiae which she he thinks is from aspirin in the past week on bilateral upper extremities. Denies any itching with the rash. Denies any chest pain, shortness of breath, fever, chills, dizziness, palpitations, headache, nausea/vomiting/diarrhe a, abdominal pain, leg swelling numbness or tingling. Patient has a history of CAD, hypertension, hyperlipidemia. ROS: At least 10 systems reviewed and otherwise acutely negative except as in the [place]. Past History Past Medical History: Diagnosis Date CAD (coronary artery disease) Cancer (HCC) prostate Hyperlipidemia Hypertension Old [place] (myocardial infarction) 05/2012 Presence of stent in right coronary artery 05/18/2012 JATIN S/P CABG x 3 2003 HAJI to LAD,SVG to OM2 ^ PL RCA Past Surgical History: Procedure Laterality Date CORONARY ANGIOPLASTY CORONARY ARTERY BYPASS GRAFT 12/04/2003 NS laden- .HAJI to LAD,SVG to Cx^PL RCA DIAGNOSTIC CARDIAC [employer] PROCEDURE 11/2003 Social History Socioeconomic History Marital status: Tobacco Use Smoking status: Never Smokeless tobacco: Never Vaping Use Vaping Use: Never used Substance and Sexual Activity Alcohol use: Not Currently Alcohol/week: 1.0 standard drink Types: 1 Glasses of wine per week Drug use: No Medications/Allergies Previous Medications AMLODIPINE (NORVASC) 10 MG TABLET Take 10 mg by mouth daily ASPIRIN 81 MG TABLET Take 81 mg by mouth daily ATORVASTATIN (LIPITOR) 80 MG TABLET Take 80 mg by mouth daily CITALOPRAM (CELEXA) 20 MG TABLET Take 20 mg by mouth daily COENZYME Q-10 PO Take by mouth HYDROCHLOROTHIAZIDE (MICROZIDE) 12.5 MG CAPSULE Take 12.5 mg by mouth daily LANSOPRAZOLE (PREVACID) 30 MG DELAYED RELEASE CAPSULE Take 30 mg by mouth daily MAGNESIUM 100 MG CAPS Take by mouth MAGNESIUM GLUCONATE (MAGONATE) 500 MG TABLET Take 500 mg by mouth 2 times daily MISC NATURAL PRODUCTS (GLUCOSAMINE CHOND COMPLEX/MSM PO) Take by mouth MULTIPLE VITAMINS-MINERALS (CENTRUM SILVER 50+MEN PO) Take by mouth MULTIPLE VITAMINS-MINERALS (PRESERVISION AREDS 2 PO) Take by mouth RESVERATROL PO Take by mouth ZINC GLUCONATE 50 MG TABLET Take 50 mg by mouth daily Allergies Allergen Reactions Beta Adrenergic Blockers Other (See Comments) bradycardia Ramipril Other (See Comments) Non-productive cough Sulfa Antibiotics Hives Physical Exam BP (!) 145/79 Pulse 72 Temp 98.4 ?F (36.9 ?C) (Temporal) Resp 16 SpO2 96% Physical Exam GENERAL APPEARANCE: Awake and alert. Cooperative. HEAD: Normocephalic. Atraumatic. EYES: Sclera anicteric. ENT: Tolerates saliva. No trismus. NECK: Supple. Trachea midline. CARDIO: Normal rate. Radial pulses symmetrical and palpable LUNGS: Respirations unlabored. CTAB. ABDOMEN: Soft. Non-distended. Non-tender throughout. MUSCULOSKELETAL: No acute deformities. SKIN: Warm and dry. Petechiae on bilateral extremities. NEUROLOGICAL: No gross facial drooping. No obvious neurologic deficits. 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 Moves all 4 extremities spontaneously. PSYCHIATRIC: Normal mood. SCREENINGS [place] Coma Scale Eye Opening: Spontaneous Best Verbal Response: Oriented Best Motor Response: Obeys commands Evelyn Coma Scale Score: 15 D Labs: Results for orders placed or performed during the hospital encounter of 02/06/22 Comprehensive Metabolic Panel Result Value Ref Range Sodium 135 135 - 145 mmol/L Potassium 4.1 3.5 - 5.1 mmol/L Chloride 97 (L) 98 - 107 mmol/L CO2 35 (H) 22 - 30 mmol/L Anion Gap 3 3 - 13 mmol/L Glucose 125 (H) 70 - 100 mg/dL BUN 15 7 - 17 mg/dL Creatinine 0.81 0.52 - 1.25 mg/dL eGFR >90.0 >60 mL/min EGFR IF NonAfrican Austrian 85.6 >60 mL/min Calcium 9.3 8.4 - 10.4 mg/dL Albumin,Serum 4.4 3.5 - 5.0 g/dL Total Protein 7.5 6.3 - 8.2 g/dL Total Bilirubin 0.7 0.2 - 1.3 mg/dL Alkaline Phosphatase 121 38 - 126 U/L ALT 68 (H) 0 - 49 U/L AST 39 15 - 46 U/L CBC with Auto Differential Result Value Ref Range WBC 10.2 3.6 - 10.7 10*3/uL RBC 5.07 4.40 - 5.90 10*6/uL Hemoglobin 16.7 13.0 (more content not included)... Normal [facility] ED Provider Note Emergency Department Encounter [facility] CDU Patient is residing in [facility], nursing did come to be concerned with new lab results at 3 AM which demonstrated potassium of 6.0, patient was admitted to CDU for weakness/fatigue, plan for cardiology evaluation and possible stress test. Additionally lab work is demonstrating uptrending troponin, initial less than 0.012, repeat at 11 PM up trended to 0.029, repeat at 3 AM increased to 0.041. No evidence of renal dysfunction corresponding with this elevated troponin or elevated potassium. Patient has no chest pain at this time, reports that aside from the fatigue that brought him in he is asymptomatic. Focused exam: GENERAL APPEARANCE: Awake and alert. Cooperative. No acute distress. NECK: Supple. No meningismus. Trachea midline. HEART: RRR. Radial pulses 2+. LUNGS: Respirations unlabored. CTAB ABDOMEN: Soft. Non-tender. No guarding or rebound. NEUROLOGICAL: No gross facial drooping. Moves all 4 extremities spontaneously. Plan: EKG is unchanged from three prior EKG's, some degree of hyperacute T waves / peaked T waves, no evidence of QRS widening or bradycardia. Hyperacute T's appear unchanged from patients prior EKGs in outpatient setting. No indication for emergent shifting at this time, as there are no acute EKG changes. Will repeat stat potassium/troponin to evaluate for validity of elevated potassium value, shift following repeat as necessary. Will additionally add CK. 0541 - ordered labs resulted, potassium is 4.3, CK is 26, troponin 0.036. As patient is asymptomatic, vital signs stable and EKG unchanged reasonable for patient to remain in CDU for further evaluation as planned. Total critical care time today provided was at least 0 minutes. This excludes seperately billable procedure. 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1945 Requested By: DHAVAL CEBALLOS Order Number: [id number] Reading MD: Tom Adams Measurements Intervals [place] Rate: 64 P: -76 AK: 184 QRS: -26 QRSD: 100 T: 122 QT: 404 QTc: 417 Interpretive Statements SINUS OR ECTOPIC ATRIAL RHYTHM LEFT ATRIAL ABNORMALITY LVH WITH SECONDARY REPOLARIZATION ABNORMALITY No previous ECG available for comparison Electronically Signed On 02-06-2022 20:25:24 EDT by Tom Adams [facility] Tom Adams MD - 02/06/2022 [facility] Test Date: 2022-02-06 Pat Name: NIDHI BRIGGS Department: 2AED Room: 31 Gender: 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1945 Requested By: DHAVAL CEBALLOS Order Number: [id number] Reading MD: Tom Adams Measurements Intervals [place] Rate: 64 P: -76 AK: 184 QRS: -26 QRSD: 100 T: 122 QT: 404 QTc: 417 Interpretive Statements SINUS OR ECTOPIC ATRIAL RHYTHM LEFT ATRIAL ABNORMALITY LVH WITH SECONDARY REPOLARIZATION ABNORMALITY No previous ECG available for comparison Electronically Signed On 02-06-2022 20:25:24 EDT by Tom Adams [facility] Work Phone: [facility] Work Phone: Hemogram w/ [employer] 02-06 Abs Baso Cnt 0.1 10*3/uL Normal 0.0-0.2 [facility] Comment on above: Performed By: #### H EMDF, BMP3, LIPD2 #### [facility] [address] [place] [address] Abs Neutrophile Cnt 7.5 10*3/uL High 1.8-7.0 [facility] Comment on above: Performed By: #### H EMDF, BMP3, LIPD2 #### [facility] [address] [place] [address] Basophils/100 WBC (Bld) 0.7 % Normal 0.0-2.0 [facility] Comment on above: Performed By: #### H EMDF, BMP3, LIPD2 #### [facility] [address] [place] [address] Eosinophils (Bld) [#/Vol] 0.1 10*3/uL Normal 0.0-0.5 [facility] Comment on above: Performed By: #### H EMDF, BMP3, LIPD2 #### [facility] [address] [place] [address] Eosinophils/100 WBC (Bld) 0.7 % Low 1.0-6.0 [facility] Comment on above: Performed By: #### H EMDF, BMP3, LIPD2 #### [facility] [address] [place] [address] Erythrocyte distribution width (RBC) [Ratio] 14.2 % Normal 11.5-14.5 [facility] Comment on above: Performed By: #### H EMDF, BMP3, LIPD2 #### [facility] [address] [place] [address] Granulocytes/100 WBC (Bld) 73.1 % Normal 40.0-80.0 [facility] Comment on above: Performed By: #### H EMDF, BMP3, LIPD2 #### [facility] [address] [place] [address] Hematocrit (Bld) [Volume fraction] 48.8 % Normal 40.0-52.0 [facility] Comment on above: Performed By: #### H EMDF, BMP3, LIPD2 #### [facility] [address] [place] [address] Hemoglobin (Bld) [Mass/Vol] 16.7 g/dL Normal 13.0-18.0 [facility] Comment on above: Performed By: #### H EMDF, BMP3, LIPD2 #### [facility] [address] [place] [address] Lymphocytes (Bld) [#/Vol] 1.5 10*3/uL Normal 1.0-4.3 [facility] Comment on above: Performed By: #### H EMDF, BMP3, LIPD2 #### [facility] [address] [place] [address] Lymphocytes/100 WBC (Bld) 15.0 % Low 20.0-40.0 [facility] [employer] Comment on above: Performed By: #### H EMDF, BMP3, LIPD2 #### [facility] [address] [place] [address] MCH (RBC) [Entitic mass] 33.0 pg Normal 26.0-34.0 [facility] [employer] Comment on above: Performed By: #### H EMDF, BMP3, LIPD2 #### [facility] [employer] [facility] [address] [place] [address] MCHC 34.3 % Normal 32.0-36.0 [facility] [employer] Comment on above: Performed By: #### H EMDF, BMP3, LIPD2 #### [facility] [employer] [address] [place] [address] MCV (RBC) [Entitic vol] 96.2 fL Normal 80.0-98.0 [facility] [employer] Comment on above: Performed By: #### H EMDF, BMP3, LIPD2 #### [facility] [employer] [address] [place] [address] Monocytes (Bld) [#/Vol] 1.1 10*3/uL High 0.0-0.8 [facility] [employer] Comment on above: Performed By: #### H EMDF, BMP3, LIPD2 #### [facility] [employer] [address] [place] [address] Monocytes/100 WBC (Bld) 10.5 % High 2.0-10.0 [facility] Comment on above: Performed By: #### H EMDF, BMP3, LIPD2 #### [facility] [address] [place] [address] Platelet mean volume (Bld) [Entitic vol] 10.0 fL Normal 7.4-12.4 [facility] [employer] Comment on above: Result Comment: MPV is a calculated measurement using platelet volume ratio. Performed By: #### H EMDF, BMP3, LIPD2 #### [facility] [address] [place] [address] Platelets (Bld) [#/Vol] 138 10*3/uL Low 140-440 [facility] Comment on above: Performed By: #### H EMDF, BMP3, LIPD2 #### [facility] [address] [place] [address] RBC (Bld) [#/Vol] 5.07 10*6/uL Normal 4.40-5.90 [facility] Comment on above: Performed By: #### H EMDF, BMP3, LIPD2 #### [facility] [address] [place] [address] WBC (Bld) [#/Vol] 10.2 10*3/uL Normal 3.6-10.7 [facility] Comment on above: Performed By: #### H EMDF, BMP3, LIPD2 #### [facility] [address] [place] [address] NT pro BNPon 02-06-2022 Natriuretic peptide B (Bld) [Mass/Vol] 635 pg/mL High 0-450 [facility] Comment on above: Performed By: #### H EMDF, BMP3, LIPD2 #### [facility] [address] [place] [address] No Panel Informationon 02-06 Test Performed by [facility], [address] [place] [address] [facility] Radiology Study observation (narrative) [facility] Work Phone: Troponin Ion 02-06-2022 Troponin I.cardiac [Mass/Vol] ng/mL Normal 0.000-0.034 [facility] Comment on above: Result Comment: . Performed By: #### H EMDF, BMP3, LIPD2 #### [facility] [address] [place] [address] Troponin x1on 02-06-2022 Troponin I.cardiac [Mass/Vol] ng/mL 0 - 0.034 ng/mL [facility] Comment on above: . Urinalysison 02-06-2022 Appearance (U) Clear Clear NA [facility] Comment on above: . Bilirubin Urine Negative Negative mg/dL [facility] Comment on above: . Color (U) Colorless Lt. Yellow NA [facility] Comment on above: . Glucose, Ur Normal Normal (<70) mg/dL [facility] Comment on above: . Ketones Ql (U) Negative Negative mg/dL [facility] Comment on above: . LEUKOCYTES, UA Negative Negative Scooter/uL [facility] Comment on above: . Nitrite, Urine Negative Negative NA [facility] Comment on above: . Occult Blood,Urine Negative Negative mg/dL [facility] Comment on above: . pH (U) 7.5 [pH] [facility] Comment on above: . Specific [place], Urine 1.007 [facility] Comment on above: . Total Protein, Urine Negative Negativ e mg/dL [facility] Comment on above: . Urobilinogen, Urine Normal Normal ( 0-1) mg/dL [facility] Comment on above: . Test Performed by [facility], [address] [place], [place] [id number] [place] [address] LAB [facility] XR CHEST PORTABLEon 02-07-20 Patient Name: NIDHI BRIGGS Diagnostic Radiology ACCESSION EXAM DATE/TIME PROCEDURE ORDERING PROVIDER [id number] 02/06/2022 18:35 EDT CR Chest Portable [id number] -DHAVAL CEBALLOS CPT code 39180 Reason For Exam (CR Chest Portable) Weakness Report PORTABLE CHEST (Frontal View) History: Respiratory abnormality Comparison: None available Findings: Frontal portable chest view shows coarsening lung markings without acute infiltrate or congestion. The heart is mildly enlarged with median sternotomy and surgical clips noted. There is no mediastinal widening or pleural effusion. IMPRESSION: Mild cardiac enlargement. No acute pulmonary process. Report Dictated on --- Final --- Dictating Physician: MD CLIFFORD AHMAD Signed Date and Time: 02/06/2022 7:06 pm Signed by: MD CLIFFORD AHMAD Transcribed Date and Time: 02/06/2022 7:07 [facility] Leslie Clifford MD - 02/06/2022 Patient Name: NIDHI BRIGGS Diagnostic Radiology ACCESSION EXAM DATE/TIME PROCEDURE ORDERING PROVIDER [id number] 02/06/2022 18:35 EDT CR Chest Portable [id number] -DHAVAL CEBALLOS CPT code 37698 Reason For Exam (CR Chest Portable) Weakness Report PORTABLE CHEST (Frontal View) History: Respiratory abnormality Comparison: None available Findings: Frontal portable chest view shows coarsening lung markings without acute infiltrate or congestion. The heart is mildly enlarged with median sternotomy and surgical clips noted. There is no mediastinal widening or pleural effusion. IMPRESSION: Mild cardiac enlargement. No acute pulmonary process. Report Dictated on --- Final --- Dictating Physician: MD CLIFFORD AHMAD Signed Date and Time: 02/06/2022 7:06 pm Signed by: MD CLIFFORD AHMAD Transcribed Date and Time: 02/06/2022 7:07 [employer] Work Phone: XR CHEST PORTABLEOrdered By: Leslie Clifford on 02-06-2022 [employer] Work Phone: CNOVon 05-15-2021 [facility] Office Visit ([facility] ) NIDHI BRIGGS ([id number]) 1945 M Date Time Provider Department 05/15/21 3:45 PM SOL GUILLAUME [facility] During your visit today, we recorded the following information about you: Pulse Blood pressure Weight Height 57/minute 132/72 77.6 kg 1.727 m Sol Guillaume MD 05/15/2021 4:07 PM Signed CHIEF COMPLAINT: Patient presents with: Recheck: GERD HPI Nidhi Briggs is a 75 year old male here today for Recheck (GERD). Symptoms of reflux are well controlled, no nausea or vomiting. No weight changes. Takes medication in AM, no residual symptoms. No dysphagia. Current Outpatient Medications Medication Sig - sodium chloride (ANNETTE-128 OPHTHALMIC) Use in eyes. - lansoprazole (PREVACID) 30 mg capsule TAKE ONE CAPSULE ONCE DAILY - amLODIPine (NORVASC) 10 mg tablet - atorvastatin (LIPITOR) 80 mg tablet - citalopram (CELEXA) 20 mg tablet - Hydrochlorothiazide 12.5 mg capsule - aspirin, enteric coated (ASPIRIN, ENTERIC COATED) 81 mg EC tablet Take 81 mg by mouth once daily. - VITS A,C,E/LUTEIN/MINERALS (OCUVITE WITH LUTEIN ORAL) Take by mouth. No current facility-administered medications for this visit. ALLERGIES Allergen Reactions - Beta-Blockers (Beta* Unknown bradycardia - Ramipril Unknown Non-productive cough - Sulfa (Sulfonamide * Unknown - Verapamil Other: See Comments Social History Tobacco Use - Smoking status: Former Smoker - Smokeless tobacco: Never Used Vaping Use - Vaping Use: Never used Substance Use Topics - Alcohol use: Not Currently Comment: daily - Drug use: No PAST MEDICAL HISTORY Diagnosis Date - Back disorder - CAD (coronary artery disease) - Diverticulosis - GERD (gastroesophageal reflux disease) - Heart attack (HCC) - HLD (hyperlipidemia) - HTN (hypertension) - IBS (irritable bowel syndrome) - Prostate cancer (HCC) PAST SURGICAL HISTORY Procedure Laterality Date - APPENDECTOMY - CHOLECYSTECTOMY - COLONOSCOPY 04/17/2010 normal exam - COLONOSCOPY 05/01/2015 grade 2 int/ext hemorrhoids, mild diverticulosis - EGD 05/08/2010 abn LES, fundic gland polyps, bile reflux gastritis, neg H Pylori - PAST SURGICAL HISTORY OF Prostate - PAST SURGICAL HISTORY OF triple bypass FAMILY HISTORY Problem Relation Age of Onset - Ischemic Heart Disease Father - other (rectal cancer) Father - Ischemic Heart Disease Brother - other (colitis) Brother REVIEW OF SYSTEMS Review of Systems All other systems reviewed and are negative. PHYSICAL EXAM BP 132/72 Pulse 57 Ht 5' 8 (1.73m) Wt 171 lb (77.6kg) BMI 26.01 kg/(m2). Physical Exam HENT: Head: Normocephalic and atraumatic. Eyes: General: No scleral icterus. Conjunctiva/sclera: Conjunctivae normal. Cardiovascular: Rate and Rhythm: Normal rate and regular rhythm. Heart sounds: Normal heart sounds. Pulmonary: Effort: Pulmonary effort is normal. Breath sounds: Normal breath sounds. Abdominal: General: Bowel sounds are normal. Palpations: Abdomen is soft. Musculoskeletal: Cervical back: Neck supple. Skin: General: Skin is warm and dry. Neurological: Mental Status: He is alert and oriented to person, place, and time. Psychiatric: Judgment: Judgment normal. ASSESSMENT: Gastroesophageal reflux disease without esophagitis (primary encounter diagnosis) Fundic gland polyposis of stomach PLAN: No orders found for this visit on 05/15/21. No follow-ups on file. Continue Prevacid Sol Guillaume MD DATE: 05/15/21 TIME: 3:42 PM Referring Provider: SELF [200] Allergies As of Date: 05/15/2021 Noted Allergy Reaction BETA-BLOCKERS (BETA-ADRENERGIC BL*12/10/2016 16 - Unknown Comments: bradycardia RAMIPRIL 12/10/2016 16 - Unknown Comments: Non-productive cough SULFA (SULFONAMIDE ANTIBIOTICS) 04/06/2017 16 - Unknown VERAPAMIL 05/05/2018 14 - Other: See Comments Date Reviewed: 05/15/2021 Reviewed by: Shannon Valle MA - Fully Assessed Reason for Visit: Recheck [92] Cmt: GERD Primary Visit Diagnosis:Gastroesophag eal reflux disease without esophagitis [K21.9] Other Visit Diagnosis:Fundic gland polyposis of stomach [K31.7] Prescriptions as of 05/15/2021 - sodium chloride (ANNETTE-128 OPHTHALMIC) Use in eyes. - lansoprazole (PREVACID) 30 mg capsule TAKE ONE CAPSULE ONCE DAILY - amLODIPine (NORVASC) 10 mg tablet - atorvastatin (LIPITOR) 80 mg tablet - citalopram (CELEXA) 20 mg tablet - Hydrochlorothiazide 12.5 mg capsule - aspirin, enteric coated (ASPIRIN, ENTERIC COATED) 81 mg EC tablet Take 81 mg by mouth once daily. - VITS A,C,E/LUTEIN/MINERALS (OCUVITE WITH LUTEIN ORAL) Take by mouth. Problem List As Of Date: 05/15/2021 (None) Medications Discontinued During This Encounter Prescriptions - COQ10, UBIQUINOL, ORAL (Discontinued) Take by mouth. Disposition: Return if symptoms worsen or fail to improve (more content not included)... Normal [facility] Vital Signs Date Time Vital Sign Value Performing Clinician Faci lity 04-07-2024 10:40-0400 Diastolic blood pressure 90 mm[Hg] Hosea Ledesma MD Work Phone: [facility] 04-07-2024 10:40-0400 Systolic blood pressure 170 mm[Hg] Hosea Ledesma MD Work Phone: [facility] 04-07-2024 10:18-0400 Body height 175.3 cm Hosea Ledesma MD Work Phone: [facility] 04-07-2024 10:18-0400 Body mass index (BMI) [Ratio] 25.67 kg/m2 Hosea Ledesma MD Work Phone: [facility] 04-07-2024 10:18-0400 Body weight 78.83 kg Hosea Ledesma MD Work Phone: [facility] 04-07-2024 10:18-0400 Heart rate 62 /min Hosea Ledesma MD Work Phone: [facility] 04-07-2024 10:18-0400 SaO2% (BldA) [Mass fraction] 95 % Hosea Ledesma MD Work Phone: [facility] 02-08-2022 11:07-0400 Body temperature 98.29 [degF] Tom Adams MD Work Phone: [facility] 02-08-2022 11:07-0400 Diastolic blood pressure 80 mm[Hg] Tom Adams MD Work Phone: [facility] 02-08-2022 11:07-0400 Heart rate 69 /min Tom Adams MD Work Phone: [facility] 02-08-2022 11:07-0400 Respiratory rate 18 /min Tom Adams MD Work Phone: [facility] 02-08-2022 11:07-0400 SaO2% (BldA) [Mass fraction] 94 % Tom Adams MD Work Phone: [facility] 02-08-2022 11:07-0400 Systolic blood pressure 131 mm[Hg] Tom Adams MD Work Phone: [facility] 02-06-2022 20:45-0400 Body height 175.3 cm Tom Adams MD Work Phone: [facility] 02-06-2022 20:45-0400 Body mass index (BMI) [Ratio] 25.1 kg/m2 Tom Adams MD Work Phone: [facility] 02-06-2022 20:45-0400 Body weight 77.11 kg Tom Adams MD Work Phone: [facility] 09-17-2021 13:48-0400 Body temperature 97.34 [degF] CULLEN CORDON MD [facility] 09-17-2021 13:48-0400 Diastolic blood pressure 72 mm[Hg] CULLEN CORDON MD [facility] 09-17-2021 13:48-0400 Heart rate 58 /min CULLEN CORDON MD [facility] 09-17-2021 13:48-0400 Mean blood pressure 91 mm[Hg] CULLEN CORDON MD [facility] 09-17-2021 13:48-0400 Respiratory rate 16 /min CULLEN CORDON MD [facility] 09-17-2021 13:48-0400 Systolic blood pressure 128 mm[Hg] CULLEN CORDON MD [facility] 09-17-2021 13:19-0400 Body temperature 99.14 [degF] CULLEN CORDON MD [facility] 09-17-2021 13:19-0400 Diastolic Blood Pressure NBP 82 1 CULLEN CORDON MD [facility] 09-17-2021 13:19-0400 Heart rate 64 /min CULLEN CORDON MD [facility] 09-17-2021 13:19-0400 Mean blood pressure 98 mm[Hg] CULLEN CORDON MD [facility] 09-17-2021 13:19-0400 Respiratory rate 16 /min CULLEN CORDON MD [facility] 09-17-2021 13:19-0400 Systolic Blood Pressure NBP 157 1 CULLEN CORDON MD [facility] 09-17-2021 12:56-0400 Diastolic Blood Pressure NBP 83 1 CULLEN CORDON MD [facility] 09-17-2021 12:56-0400 Heart rate 72 /min CULLEN CORDON MD [facility] 09-17-2021 12:56-0400 Mean blood pressure 96 mm[Hg] CULLEN CORDON MD [facility] 09-17-2021 12:56-0400 Respiratory rate 16 /min CULLEN CORDON MD [facility] 09-17-2021 12:56-0400 Systolic Blood Pressure NBP 138 1 CULLEN CORDON MD [facility] 09-17-2021 12:26-0400 Diastolic Blood Pressure NBP 77 1 CULLEN CORDON MD [facility] 09-17-2021 12:26-0400 Mean blood pressure 95 mm[Hg] CULLEN CORDON MD [facility] 09-17-2021 12:26-0400 Systolic Blood Pressure NBP 148 1 CULLEN CORDON MD [facility] 09-17-2021 11:56-0400 Body temperature 98.96 [degF] CULLEN CORDON MD [facility] 09-17-2021 09:50-0400 Body temperature 98.08 [degF] CULLEN CORDON MD [facility] 09-17-2021 09:45-0400 Body temperature 98.13 [degF] CULLEN CORDON MD [facility] 09-17-2021 09:40-0400 Body temperature 98.11 [degF] CULLEN CORDON MD [facility] 09-17-2021 06:45-0400 Body height 172.7 cm CULLEN CORDON MD [facility] 09-17-2021 06:45-0400 Body weight 74.9 kg CULLEN CORDON MD [facility] 09-17-2021 06:45-0400 Heart rate 66 /min CULLEN CORDON MD [facility] 09-10-2021 12:39-0400 Body height 172.7 cm CULLEN CORDON MD [facility] 09-10-2021 12:39-0400 Body weight 77.3 kg CULLEN CORDON MD [facility] 09-10-2021 12:39-0400 Body weight 26.03 kg/m2 CULLEN CORDON MD [facility] Encounters Encounter Date Encounter Type Care Provider Facility Start: 04-07-2024 End: 04-07-2024 ambulatory [facility] Start: 04-07-2024 End: 04-07-2024 Office outpatient visit 25 minutes oHsea Ledesma MD Work Phone: [facility] Cardiology [facility] Comment on above: Coronary artery dise ase involving [place] coronary artery of [place] heart without angina pectoris (Primary Dx); Hypertension, unspecified type; Mixed hyperlipidemia; Essential hypertension Start: 04-23-2023 End: 04-23-2023 ambulatory [facility] Start: 02-06-2022 End: 02-08-2022 ambulatory UNKNOWN PROVIDER [facility] Start: 02-06-2022 End: 02-08-2022 Emergency department patient visit Tom Adams MD Work Phone: [facility] Comment on above: Generalized weakness (Primary Dx); Abnormal EKG Start: 09-17-2021 End: 09-17-2021 SAME DAY STAY CULLEN CORDON MD [facility] Procedures Date Procedure Procedure Detail Performing Clinician Start: 04-07-2024 Ecg routine ecg w/le ast 12 lds w/i&r Hosea Ledesma MD Work Phone: Start: 02-08-2022 Assay of troponin quantitative Francesca Cyr PSYCHIATRY INSTRUCTOR - PLATE PRINTER Work Phone: Start: 02-07-2022 Myocardial spect mul tiple studies Francesca Cyr PSYCHIATRY INSTRUCTOR - PLATE PRINTER Work Phone: Start: 02-07-2022 Assay of troponin quantitative Amairani Cervantes PSYCHIATRY INSTRUCTOR - PLATE PRINTER Work Phone: Start: 02-07-2022 Creatine kinase total K tres Chase DO Work Phone: Start: 02-07-2022 Ecg routine ecg w/le ast 12 lds w/i&r Melodie Chase DO Work Phone: Start: 02-07-2022 Basic metabolic pane l calcium total Francesca Cyr [employer] Work Phone: Start: 02-07-2022 Lipid panel Francesca grover [employer] Work Phone: Start: 02-07-2022 Lipid 1996 panel - S audelia or Plasma Hosea Ledesma MD Work Phone: Start: 02-07-2022 Ecg routine ecg w/le ast 12 lds w/i&r Francesca Cyr [employer] Work Phone: Start: 02-06-2022 Culture bacterial quanttative colony count urine Francesca Cyr [employer] Work Phone: Start: 02-06-2022 Urnls dip stick/tabl et rgnt auto w/o microscopy Francesca Cyr [employer] Work Phone: Start: 02-06-2022 Assay of troponin quantitative Francesca Cyr [employer] Work Phone: Start: 02-06-2022 RESPIRATORY PANEL, MOLECULAR, WITH COVID-19 Francesca Cyr [employer] Work Phone: Start: 02-06-2022 Comprehensive metabo lic panel Dhaval Ceballos PA-C Work Phone: Start: 02-06-2022 Radiologic exam ches t single view Dhaval Ceballos PA-C Work Phone: Start: 02-06-2022 Ecg routine ecg w/le ast 12 lds w/i&r Tom Adams MD Work Phone: Start: 12-19-2016 History of coronary artery bypass grafting S/P CABG x 3 Hosea Ledesma MD Work Phone: Start: 06-15-2003 Coronary artery bypass graft CULLEN CORDON MD Start: 06-15-2003 History of coronary artery bypass grafting S/P CABG x 3 Tom Adams MD Work Phone: Start: 06-15-1971 Appendectomy CULLEN VALENTIN MD Start: 06-15-1955 History of tonsillectomy CULLEN CORDON MD Cholecystectomy CULLEN CORDON MD Decompression laminectomy PA MAVERICK CORDON MD Ligation of vein CULLEN Harris MD Prostatectomy CULLEN Cruz Plan of Treatment Date Care Activity Detail Author Start: 02-08-2029 DTaP/Tdap/Td vaccine (2 - Tdap) DTaP/Tdap/Td vaccine (2 - Tdap) [facility] Start: 02-08-2029 DTaP/Tdap/Td Vaccine s (3 - Td or Tdap) DTaP/Tdap/Td Vaccines (3 - Td or Tdap) [facility] Start: 02-07-2027 Lipid panel Lipid Panel [facility] Start: 05-17-2024 End: 05-17-2024 Patient encounter procedure 05/17/2024 8:30 AM EST Office Visit [facility] [address] [id number] Hoa Guerra PA-C [address] [place] [id number] [facility] Start: 04-21-2024 End: 04-07-2025 Basic metabolic 1998 panel - Serum or Plasma Basic metabolic panel Lab Routine Hypertension, unspecified type Expected: 04/21/2024 (Approximate), Expires: 04/07/2025 [facility] Work Phone: Comment on above: Expected: 04/21/2024 (Approximate), Expires: 04/07/2025 Start: 02-14-2024 COVID-19 Vaccine ( season) COVID-19 Vaccine ( season) [facility] Start: 02-14-2024 Influenza vaccination Influenza Vacc ine (#1) [facility] Start: 02-07-2023 Lipid panel Lipids [facility] Start: 02-13-2022 Influenza vaccination Flu vaccine (# 1) [facility] Start: 01-25-2021 COVID-19 Vaccine (3 - Booster for Moderna series) COVID-19 Vaccine (3 - Booster for Moderna series) [facility] Start: 06-01-2020 Pneumococcal 65+ yea rs Vaccine (2 - PPSV23 or PCV20) Pneumococcal 65+ years Vaccine (2 - PPSV23 or PCV20) [facility] Start: 11-08-2019 RSV Immunization for Adults (1 - 1-dose 75+ series) RSV Immunization for Adults (1 - 1-dose 75+ series) [facility] Start: 1994 Shingles vaccine (1 of 2) Shingles vaccine (1 of 2) [facility] Start: 1994 Zoster Vaccines (1 o f 2) Zoster Vaccines (1 of 2) [facility] Start: 1962 Hepatitis C screening [facility] Start: 1956 Depression Screen Depression Screen [facility] Start: 1956 Depression Screening Depression Scre ening [facility] Start: 1945 Annual Wellness Visi t (AWV) Annual Wellness Visit (AWV) [facility] End: 02-07-2022 Nasal Cannula Oxygen Nasal Cannula Oxygen Respiratory Care Routine As Needed until discontinued starting 02/06/2022 [facility] Work Phone: Comment on above: As Needed until disc ontinued starting 02/06/2022 Oxygen therapy [[facility] Data Set] Initiate Oxygen Therapy Protocol Respiratory Care Routine Daily until discontinued starting 02/06/2022 [facility] Work Phone: Comment on above: Daily until disconti nued starting 02/06/2022 End: 02-08-2022 Troponin I.cardiac [Mass/volume] in Serum or Plasma Troponin Lab Timed Every 4 Hours (Lab) for 2 Days starting 02/06/2022 until 02/08/2022, 3 completed [facility] Work Phone: Comment on above: Every 4 Hours (Lab) for 2 Days starting 02/06/2022 until 02/08/2022, 3 completed Immunizations Immunization Date Immunization Notes Care Provider Fa cili 04-10-2021 SARS-CoV-2 (COVID-19 ) mRNA-1273 vaccine CULLEN CORDON MD [facility] 01-09-2021 pneumococcal polysaccharide vaccine, 23 valent CULLEN CORDON MD [facility] 08-25-2020 SARS-CoV-2 (COVID-19 ) mRNA-1273 vaccine CULLEN CORDON MD [facility] 07-28-2020 SARS-CoV-2 (COVID-19 ) mRNA-1273 vaccine CULLEN CORDON MD [facility] 06-01-2019 pneumococcal conjuga te vaccine, 13 valent CULLEN CORDON MD [facility] Payers Date Payer Category Payer Commercial Managed C [facility] .[id number] 2018 Medicare [id number] 1945 Unknown [id number] Private Health Insurance Social History Date Type Detail Facility Start: 12-24-2017 End: 09-10-2021 Tobacco smoking status Never smoked tobacco (finding) [facility] Sex Assigned At Male [facility] Start: 12-24-2017 Tobacco use and exposure Smokeless tobacco non-user [facility] Work Phone: Start: 02-06-2022 End: 04-07-2024 Alcohol intake Ex-drinker (finding) [facility] Work Phone: Start: 02-06-2022 End: 04-07-2024 Alcohol intake [facility] Work Phone: Start: 1945 Sex Assigned At Not on file [facility] Work Phone: Start: 01-27-2022 End: 02-06-2022 Exposure to SARS-CoV-2 (event) Not sure [facility] Start: 04-07-2024 Tobacco use panel [facility] Start: 01-13-2022 Sex Male (finding) [facility] Medical Equipment Procedure Code Equipment Code Equipment Origin al Text Equipment Identifier Dates [facility] Start: 09-17-2021 Functional Status Date Assessment Result Facility 09-17-2021 Functional Status [facility] 09-17-2021 Functional Status [facility] 09-17-2021 Functional Status [facility] 09-17-2021 Functional Status [facility] 09-17-2021 Functional Status [facility] 09-10-2021 Functional Status [facility] Mental Status Date Assessment Result Facility 09-17-2021 [facility] Clinical Notes 08-06-2020 to 04-07-2024 Hosea Ledesma MD - 04/07/2024 10:00 AM EDTDischarge InstructionsAttachmentsJailene Davila DTR - 02/08/2022 8:51 AM EDARIS Benoit CNP - 02/07/2022 10:52 AM EDT Note Date & Type Note Facility 04-07-2024 History of Present illness Narrative [employer] [employer] [facility] CARDIOLOGY [facility] [address] [facility] [address] [facility] [id number] Dept: [phone] Dept Visit type: Established : 1945 Chief Complaint: Chief Complaint Patient presents with 1 Year Follow-up Coronary Artery Disease History of Present Illness: Nidhi Briggs is a 78 y.o. male who is here in follow-up concerning his coronary artery disease. He had multivessel bypass surgery 20 years ago. He has done well since. He did have stenting afterwards approximately 10 years ago. He has no symptoms of angina currently. He walks and exercises regularly. He has not had syncope, near syncope or palpitations. Past Medical History: Past Medical History: Diagnosis Date CAD (coronary artery disease) Cancer (CMS/HCC) (HCC) prostate Hyperlipidemia Hypertension Old AK (myocardial infarction) 05/2012 Polio 1951 Presence of stent in right coronary artery 05/18/2012 JATIN S/P CABG x 3 2003 HAJI to LAD,SVG to OM2 ^ PL RCA Past Surgical History Past Surgical History: Procedure Laterality Date BACK SURGERY 1999 CARDIAC PROCEDURE 11/2003 CHOLECYSTECTOMY CORNEAL TRANSPLANT 09/16/2021 CORONARY ANGIOPLASTY CORONARY ARTERY BYPASS GRAFT 12/04/2003 NS laden- .HAJI to LAD,SVG to Cx^PL RCA PROSTATECTOMY Bilateral 2004 Family History Family History Problem Relation Name Age of Onset Coronary artery disease Brother Coronary artery disease Father Coronary artery disease Brother Social History Social History Tobacco Use Smoking status: Never Smokeless tobacco: Never Substance Use Topics Alcohol use: Not Currently Alcohol/week: 1.0 standard drink of alcohol Drug use: No Allergies: Allergies Allergen Reactions Sulfa Antibiotics Hives, Swelling and Unknown Other reaction(s): HIVES/SWELLING Beta Adrenergic Blockers Other reaction(s): Other, Other (See Comments) bradycardia Ramipril Cough and Unknown Other reaction(s): Dry cough Non-productive cough Non-productive cough Sulfamethoxazole-Trimethoprim Other reaction(s): Hives, Swelling Verapamil Other reaction(s): Other, Other: See Comments Medications: Current Outpatient Medications: amLODIPine (Norvasc) 10 MG tablet, Take 10 mg by mouth daily., Disp: , Rfl: aspirin 81 MG EC tablet, Take 81 mg by mouth in the morning., Disp: , Rfl: atorvastatin (Lipitor) 80 MG tablet, Take 80 mg by mouth daily., Disp: , Rfl: cholecalciferol (Vitamin D-3) 25 MCG (1000 UT) capsule, Take 1,000 Units by mouth daily., Disp: , Rfl: citalopram (CeleXA) 20 MG tablet, Take 20 mg by mouth Nightly., Disp: , Rfl: hydroCHLOROthiazide (HYDRODiuril) 12.5 MG tablet, Take 12.5 mg by mouth daily., Disp: , Rfl: lansoprazole (Prevacid) [address] capsule, Take 30 mg by mouth daily., Disp: , Rfl: MULTIPLE MINERALS-VITAMINS PO, Take 1 tablet by mouth daily., Disp: , Rfl: losartan (Cozaar) 50 MG tablet, Take 1 tablet (50 mg) by mouth daily., Disp: 90 tablet, Rfl: 3 Review of Systems: Review of Systems Constitutional: Negative for activity change, chills, diaphoresis, fatigue and fever. HENT: Negative for nosebleeds and trouble swallowing. Eyes: Negative for discharge and visual disturbance. Respiratory: Negative for apnea, cough, chest tightness, shortness of breath and wheezing. Cardiovascular: Negative for chest pain, palpitations and leg swelling. Gastrointestinal: Negative for abdominal distention, abdominal pain, blood in stool, diarrhea, nausea and vomiting. Endocrine: Negative for cold intolerance and heat intolerance. Genitourinary: Negative for hematuria. Musculoskeletal: Negative for gait problem and myalgias. Skin: Negative for color change and rash. Neurological: Negative for dizziness, seizures, syncope, facial asymmetry, speech difficulty, weakness, light-headedness, numbness and headaches. Hematological: Does not bruise/bleed easily. Psychiatric/Behavioral: Negative for dysphoric mood. Physical Examination: Vitals: Vitals: 04/07/24 1018 04/07/24 1040 BP: (!) 172/80 (!) 170/90 BP Location: Left arm Left arm Patient Position: Sitting Sitting BP Cuff Size: Adult Adult Pulse: 62 SpO2: 95% Weight: 173 lb 12.8 oz (78.8 kg) Height: 5' 9 (1.753 m) Body mass index is 25.67 kg/m . Physical Exam Constitutional: Appearance: Normal appearance. HENT: Head: Normocephalic and atraumatic. Nose: Nose normal. Eyes: General: No scleral icterus. Extraocular Movements: Extraocular movements intact. Pupils: Pupils are equal, round, and reactive to light. Neck: Thyroid: No thyromegaly. Vascular: No carotid bruit or JVD. Cardiovascular: Rate and Rhythm: Normal rate and regular rhythm. Pulses: Normal pulses. Heart sounds: Murmur heard. Systolic murmur is present with a grade of 1/6. No gallop. Pulmonary: Effort: Pulmonary effort is normal. Breath sounds: No wheezing, rhonchi or rales. Chest: Chest wall: No tenderness. Abdominal: General: Abdomen is flat. There is no distension. Palpations: Abdomen is soft. There is no hepatomegaly, splenomegaly or mass. Musculoskeletal: General: No swelling or tenderness. Normal range of motion. Cervical back: No tenderness. Skin: General: Skin is warm. Neurological: General: No focal deficit present. Mental Status: He is alert and oriented to person, place, and time. Cranial Nerves: Cranial nerves 2-12 are intact. No cranial nerve deficit. Psychiatric: Attention and Perception: Attention normal. Mood and Affect: Mood normal. Speech: Speech normal. Behavior: Behavior normal. Laboratory Tests: Lab Results Component Value Date WBC 9.5 02/07/2022 HGB 16.4 02/07/2022 MCV 96.2 02/07/2022 Lab Results Component Value Date GLUCOSE 108 (H) 02/07/2022 CALCIUM 9.5 02/07/2022 NA 138 02/07/2022 K 4.3 02/07/2022 CO2 36 (H) 02/07/2022 CL 100 02/07/2022 BUN 14 02/07/2022 CREATININE 0.86 02/07/2022 @[facility]@ Lab Results Component Value Date CHOL 164 02/07/2022 Lab Results Component Value Date TRIG 136 02/07/2022 Lab Results Component Value Date HDL 56 02/07/2022 No results found for: LDLCALC NT PRO BNP Date Value Ref Range Status 02/06/2022 635 (H) 0 - 450 pg/mL Final Assessment and Plan: 1. Coronary artery disease involving [place] coronary artery of [place] heart without angina pectoris 2. Hypertension, unspecified type 3. Mixed hyperlipidemia 4. Essential hypertension 1. Coronary artery disease: He is currently doing well with no symptoms of angina. Continued risk factor modification with exercise, diet and lipid-lowering is recommended. 2. Hyperlipidemia: On therapy. 3. Hypertension: Blood pressure significantly elevated. He has a resting bradycardia so adding a beta-chris would be difficult. He had a cough with MANINDER inhibitor's in the past. I will try an ARB. Will have him back in a month to see what his blood pressures are doing. He will get a BMP in 2 weeks. 4. Atrial bradycardia: He has had this ever since surgery. He has not had any profound bradycardia or symptoms related to this. Will continue to monitor this. documented in this encounter [facility] 02-08-2022 Note Clinical Decision Un it Discharge Note Date and time patient placed in observation status:02/06/20222029 Date and time of discharge: 02/08/2022 1200 Reason patient placed into observation status: Fatigue Abnormal EKG Hospital Course: Patient initially presented to the emergency department for generalized weakness over the last few days. He had gone to his PCP earlier in the day who reported that he had an abnormal EKG in the office, history of 2 previous heart attacks and there was concern that his symptoms may be secondary to another cardiac event. His emergency department evaluation initially showed a normal troponin, mildly elevated BNP at 635, mild cardiac enlargement, no acute pulmonary processes identified on CXR. Patient was admitted under observation given his history of CAD, hypertension, previous AK for further cardiac evaluation. Patient was seen yesterday by cardiology as he did have mild elevation in consecutive troponins. Eventually his troponins did trend back down to normal. Patient was able to complete stress testing.Which showed no induced ischemic related changes, large inferior scarring. The EKG portion was nondiagnostic because of baseline ST/T waves. Left ventricle end-systolic volume was 72 mL, left ventricle ejection fraction poststress was 52%. Was noted hypokinesis involving the basal, mid, apical inferior and basal and mid inferior lateral wall of the left ventricle. I have discussed these findings with cardiology this day who has okayed for patient to be discharged and to follow-up outpatient with his engraver pantograph. Patient has not had any symptoms this day of chest pain, shortness of breath or excessive fatigue. There was concern that prior to presentation to the emergency department patient had somewhat overworked in his yard. This fatigue that he does have does seem somewhat secondary to overuse, overwork. He has been up and ambulating throughout his stay at observation without complaints of fatigue. His vital signs have been normal, he is without complaints this day and I do feel he can be discharged with follow-up outpatient. The patient was informed that although the workup on this visit is negative, they still need close outpatient follow up with their Primary Care Physician and specialist engraver pantograph for continued and further evaluation. The patient was also told that should new, worsening, or changing symptoms develop, they need to return to the ED for evaluation. The patient verbalizes understanding of our discussion and agrees with the discussed plan. Discharge Diagnosis: Generalized weakness EKG changes Hypertension Coronary artery disease Focused Physical Exam: Nursing Notes Reviewed General: Vitals noted. NAD, nontoxic, afebrile. HEENT: Normocephalic, atraumatic, sclerae clear, moist mucous membranes Cardiac: Regular rate and rhythm, no murmurs Lungs: Clear to auscultation bilaterally, no wheezing Abdomen: Soft, nontender, normoactive bowel sounds, no rebound or guarding Extremities: No edema, brisk capillary refill Skin: Warm and dry Neuro: Alert and oriented ?3, PERRLA Psych: Cooperative, normal mood and affect VITAL SIGNS: BP 131/80 Pulse 69 Temp 98.3 ?F (36.8 ?C) (Temporal) Resp 18 Ht 5' 9 (1.753 m) Wt 170 lb (77.1 kg) SpO2 94% BMI 25.10 kg/m? Labs: Results for orders placed or performed during the hospital encounter of 02/06/22 Respiratory Panel, Molecular, with COVID-19 (Restricted: peds pts or suitable admitted adults) Specimen: Nasopharyngeal R nare Result Value Ref Range Respiratory Panel Molecular, with COVID NEGATIVE: No targets were detected by the [employer] Upper Respiratory Pathogens PCR Panel. _ Expected Result: Not Detected The [employer] Upper Respiratory Pathogens PCR Panel can detect the following targets: SARS-CoV-2, Adenovirus, Coronavirus 229E, Coronavirus HKU1, Coronavirus NL63, Coronavirus OC43, Human Metapneumovirus, Human Rhinovirus/Enterovirus, Influenza A, Influenza B, Parainfluenza Virus 1, Parainfluenza Virus 2, Parainfluenza Virus 3, Parainfluenza Virus 4, Respiratory Syncytial Virus, Bordetella pertussis, Bordetella parapertussis, Chlamydia pneumoniae, Mycoplasma pneumoniae. Method: Real-time PCR. Culture, Urine Specimen: Urine pt Result Value Ref Range Urine Culture, Routine No growth (<1,000 CFU/ml). Comprehensive Metabolic Panel Result Value Ref Range Sodium 135 135 - 145 mmol/L Potassium 4.1 3.5 - 5.1 mmol/L Chloride 97 (L) 98 - 107 mmol/L CO2 35 (H) 22 - 30 mmol/L Anion Gap 3 3 - 13 mmol/L Glucose 125 (H) 70 - 100 mg/dL BUN 15 7 - 17 mg/dL Creatinine 0.81 0.52 - 1.25 mg/dL eGFR >90.0 >60 mL/min EGFR IF NonAfrican Austrian 85.6 >60 mL/min Calcium 9.3 8.4 - 10.4 mg/dL Albumin,Serum 4.4 3.5 - 5.0 g/dL Total Protein 7.5 6.3 - 8.2 g/dL Total Bilirubin 0.7 0.2 - 1.3 mg/dL Alkaline Phosphatase 121 38 - 126 U/L ALT (more content not included)... [facility] 02-08-2022 Hospital Discharge instructions ARIS Villegas CNP - 02/08/2022 11:51 AM EDT No changes have been made to your medications, resume medications as taking prior to hospitalization The following attachments cannot be sent through Care Everywhere.Healthy Diet: Heart (Turkmen)Heart: General Info (Turkmen)documented in this encounter [facility] Work Phone: 02-08-2022 History of Present illness Narrative Nutrition rescreen complete. Pt assigned a level one for nutrition care. Previous note documented in error Notified MD regarding K 6.0 and Trop 0.041. Orders obtained. EKG done and labs redrawn. documented in this encounter [facility] Work Phone: 09-17-2021 Hospital Discharge instructions Patient Education 09/17/2021 13:46:50 [facility] Discharge Instructions Template (03/2018) (Custom) [facility] SAME DAY SURGERY DISCHARGE INSTRUCTIONS PLEASE FOLLOW THE INSTRUCTIONS BELOW MARKED WITH AN X: _x__ Regular Diet: Start with clear liquids, then soup and crackers and gradually add other foods. __x_ Drink extra fluids. ___ Special Diet Instructions: ___ ACTIVITY: __x_ Avoid stress to suture line. Since you have had an anesthetic, it would be advisable not to drive, drink alcohol, or make major decisions over the next 24 hours. You may require more rest tonight and tomorrow. ___ May resume regular activity as tolerated. ___ Restrict activity as follows: ___ ___ Walk Only ___ ___ Do not go up and down stairs. ___ Do not ride in car until ___ ___ Do not drive car. ___ Do not have sexual intercourse. ___ No heavy lifting, pushing or straining. _x__ Other: ___Lay flat as much as possible BATHING/SHOWERING: ___ Sponge bathe until office visit. ___ Sitting in tub of warm water may relieve discomfort. ___ May tub bathe ___ May shower ___ On day after surgery sit in tub of warm water to soak off dressing. DRESSING: ___ Keep operative area dry and clean for ___ ___ Check the operative area for signs of bleeding. Apply pressure to the bleeding site if necessary and call your physician. ___ Change dressing as necessary using sterile dressing material or bandaid. ___ Reinforce dressing as necessary. ___ Change and care for wound as follows: ___ ___ Wear bra for ___ days following breast surgery for comfort. ___ Change drip pad as needed. ___ Wear scrotal support for comfort. WATCH FOR SIGNS OF INFECTION: (Usually appears 36-48 hours after surgery) Increased temperature (101 degrees Fahrenheit or higher) Redness or swelling Increased pain Foul odor or drainage. If you have any questions, please call your doctor at the number listed on your follow up instructions. Follow all instructions given to you by your physician. Please complete and return the survey you will be receiving in the mail to help us better serve our patients. Form: [id number]) R: 09/21 Follow Up Care 07/08/2021 15:21:25 With:CULLEN CORDON MD, [facility] [place] [id number], Ophthalmology Address: When: Unknown Comments:Follow-up as scheduled [facility] 05-15-2021 Note HNO ID: [id number] Author: Sol Guillaume MD Service: ? Author Type: Physician Type: Progress Notes Filed: 05/15/2021 4:07 PM Note Text: CHIEF COMPLAINT: Patient presents with: Recheck: GERD HPI Nidhi Briggs is a 75 year old male here today for Recheck (GERD). Symptoms of reflux are well controlled, no nausea or vomiting. No weight changes. Takes medication in AM, no residual symptoms. No dysphagia. Current Outpatient Medications Medication Sig - sodium chloride (ANNETTE-128 OPHTHALMIC) Use in eyes. - lansoprazole (PREVACID) 30 mg capsule TAKE ONE CAPSULE ONCE DAILY - amLODIPine (NORVASC) 10 mg tablet - atorvastatin (LIPITOR) 80 mg tablet - citalopram (CELEXA) 20 mg tablet - Hydrochlorothiazide 12.5 mg capsule - aspirin, enteric coated (ASPIRIN, ENTERIC COATED) 81 mg EC tablet Take 81 mg by mouth once daily. - VITS A,C,E/LUTEIN/MINERALS (OCUVITE WITH LUTEIN ORAL) Take by mouth. No current facility-administered medications for this visit. ALLERGIES Allergen Reactions - Beta-Blockers (Beta* Unknown bradycardia - Ramipril Unknown Non-productive cough - Sulfa (Sulfonamide * Unknown - Verapamil Other: See Comments Social History Tobacco Use - Smoking status: Former Smoker - Smokeless tobacco: Never Used Vaping Use - Vaping Use: Never used Substance Use Topics - Alcohol use: Not Currently Comment: daily - Drug use: No PAST MEDICAL HISTORY Diagnosis Date - Back disorder - CAD (coronary artery disease) - Diverticulosis - GERD (gastroesophageal reflux disease) - Heart attack (HCC) - HLD (hyperlipidemia) - HTN (hypertension) - IBS (irritable bowel syndrome) - Prostate cancer (HCC) PAST SURGICAL HISTORY Procedure Laterality Date - APPENDECTOMY - CHOLECYSTECTOMY - COLONOSCOPY 04/17/2010 normal exam - COLONOSCOPY 05/01/2015 grade 2 int/ext hemorrhoids, mild diverticulosis - EGD 05/08/2010 abn LES, fundic gland polyps, bile reflux gastritis, neg H Pylori - PAST SURGICAL HISTORY OF Prostate - PAST SURGICAL HISTORY OF triple bypass FAMILY HISTORY Problem Relation Age of Onset - Ischemic Heart Disease Father - other (rectal cancer) Father - Ischemic Heart Disease Brother - other (colitis) Brother REVIEW OF SYSTEMS Review of Systems All other systems reviewed and are negative. PHYSICAL EXAM BP 132/72 Pulse 57 Ht 5' 8 (1.73m) Wt 171 lb (77.6kg) BMI 26.01 kg/(m2). Physical Exam HENT: Head: Normocephalic and atraumatic. Eyes: General: No scleral icterus. Conjunctiva/sclera: Conjunctivae normal. Cardiovascular: Rate and Rhythm: Normal rate and regular rhythm. Heart sounds: Normal heart sounds. Pulmonary: Effort: Pulmonary effort is normal. Breath sounds: Normal breath sounds. Abdominal: General: Bowel sounds are normal. Palpations: Abdomen is soft. Musculoskeletal: Cervical back: Neck supple. Skin: General: Skin is warm and dry. Neurological: Mental Status: He is alert and oriented to person, place, and time. Psychiatric: Judgment: Judgment normal. ASSESSMENT: Gastroesophageal reflux disease without esophagitis (primary encounter diagnosis) Fundic gland polyposis of stomach PLAN: No orders found for this visit on 05/15/21. No follow-ups on file. Continue Prevacid Sol Guillaume MD DATE: 05/15/21 TIME: 3:[address] [facility] 08-06-2020 Note Patient Outreach ([place] VAMN) NIDHI BRIGGS ([id number]) 1945 M Date Time Provider Department 08/06/20 WEATHERS, TAVO TURNER During your visit today, we recorded the following information about you: Allergies As of Date: 08/06/2020 Noted Allergy Reaction BETA-BLOCKERS (BETA-ADRENERGIC BL*12/10/2016 16 - Unknown Comments: bradycardia RAMIPRIL 12/10/2016 16 - Unknown Comments: Non-productive cough SULFA (SULFONAMIDE ANTIBIOTICS) 04/06/2017 16 - Unknown Date Reviewed: 03/29/2020 Reviewed by: Annalisa Raymond LPN - Fully Assessed Order(s):SARS-COVID VACCINE 1ST DOSE APPT [[id number]] Order #: [id number] FUTURE Prescriptions as of 08/06/2020 Sig: ANNETTE-128 OPHTHALMIC Use in eyes. LANSOPRAZOLE 30 MG CAPSULE,DE* TAKE ONE CAPSULE ONCE DAILY AMLODIPINE 10 MG TABLET ATORVASTATIN 80 MG TABLET CITALOPRAM 20 MG TABLET HYDROCHLOROTHIAZIDE 12.5 MG C* ASPIRIN 81 MG TABLET,DELAYED * Take 81 mg by mouth once gato* OCUVITE WITH LUTEIN ORAL Take by mouth. COQ10 (UBIQUINOL) ORAL Take by mouth. Problem List As Of Date: 08/06/2020 (None) Letter Text Encounter Status:Closed by LUZ MARIA REID on 08/09/[address] [facility] Evaluation + Plan note No data available for this section [facility] Evaluation note Diagnosis Generalized weakness- Primary Other malaise and fatigue Abnormal EKG Nonspecific abnormal electrocardiogram (ECG) (EKG) documented in this encounter [facility] Work Phone: Evaluation note* Diagnosis Coronary artery disease involving [place] coronary artery of [place] heart without angina pectoris- Primary Hypertension, unspecified type Mixed hyperlipidemia Essential hypertension Unspecified essential hypertension [facility] No data available for this section [facility] Summary Purpose Family History No Family History Records FoundNo Family History Records FoundNo Family History Records Found Advance Directives No Advanced Directives Records FoundLatest Code Status on File Code Status Date Activated Date Inactivated Comments Full Code 02/06/2022 9:58 PM Additional Source Comments (unrecognized sect ion and content) No Status Records FoundNo Status Records FoundNo Status Records Found INFORMATION SOURCE (unrecogn ized section and content) DATE CREATED AUTHOR 07/18/[address] [facility] DATE CREATED AUTHOR AUTHOR'S ORGANIZ ATION 04/10/2022 [facility] [employer] DATE CREATED AUTHOR AUTHOR'S ORGANIZ ATION 04/08/2024 [facility] [employer] [facility] Reason for Visit (unrecogniz ed section and content) Reason Comments Irregular Heart Beat Reason Comments 1 Year Follow-up Coronary Artery Disease Scheduled Active and Recently Administ ered Medications (unrecognized section and content) Medication Order 02/06/2022 02/07/2022 02/08/2022 amLODIPine (NORVASC) tablet 10 mg 10 mg, Oral, DAILY, First dose on Thu02/07/22 at 0900, Until Discontinued 0947 (Given - Provider: Evelyn Lundy RN) 0756 (Given - Provider: Joseph Schreiber, CELESTINO) aspirin chewable tablet 81 mg 81 mg, Oral, DAILY, First dose on Thu02/07/22 at 0900, Until Discontinued 0947 (Given - Provider: Evelyn Lundy RN) 0756 (Given - Provider: Joseph Schreiber, CELESTINO) atorvastatin (LIPITOR) tablet 80 mg 80 mg, Oral, NIGHTLY, First dose on Thu02/06/22 at 2200, Until Discontinued 2348 (Given - Provider: Carmen Vegas, CELESTINO) 2127 (Given - Provider: Carmen Vegas, RN) 2100 (Due) citalopram (CELEXA) tablet 20 mg 20 mg, Oral, DAILY, First dose on Thu02/07/22 at 0900, Until Discontinued 0947 (Given - Provider: Evelyn Lundy RN) 0756 (Given - Provider: Joseph Schreiber, RN) hydroCHLOROthiazide (HYDRODIURIL) tablet 12.5 mg 12.5 mg, Oral, DAILY, First dose on Thu02/07/22 at 0900, Until Discontinued 0947 (Given - Provider: Evelyn Lundy RN) 0756 (Given - Provider: Joseph Schreiber RN) pantoprazole (PROTONIX) tablet 40 mg 40 mg, Oral, DAILY BEFORE BREAKFAST, First dose on Thu02/07/22 at 0700, Until Discontinued, Do not crush or break. Substituted for Lansoprazole (PREVACID). 0947 (Given - Provider: Evelyn Lundy RN) 0640 (Given - Provider: Carmen Vegas RN) prednisoLONE acetate (PRED FORTE) 1 % ophthalmic suspension 1 drop 1 drop, Right Eye, DAILY, First dose on Thu02/07/22 at 0900, Until Discontinued 0949 (Given - Provider: Evelyn Lundy RN) 0756 (Given - Provider: Joseph Schreiber RN) sodium chloride flush 0.9 % injection 5-40 mL 5-40 mL, IntraVENous, EVERY 12 HOURS SCHEDULED (2 times per day), First dose on Thu02/06/22 at 2215, Until Discontinued, For Line Patency: Peripheral IV = 5 mL; Midline or Central Line = 10 mL/lumen. If following IV push medication, administer flush at same rate as the IV push. Flush volume is determined by type of infusion therapy being given. For non-viscous solutions use: Peripheral IV = 5 mL Midline or Central Line = 10 mL/lumen For viscous solutions (i.e. blood components, parenteral nutrition, contrast media, or after obtaining blood sample) use: Peripheral IV = 10 mL Midline or Central Line = 20 mL/lumen 2215 (Given - Provider: Carmen Vegas RN) 0948 (Given - Provider: Evelyn Lundy RN)2128 (Given - Provider: Carmen Vegas RN) 0756 (Given - Provider: Joseph Schreiber RN)2100 (Due) PRN Medication Order 02/06/2022 02/07/2022 02/08/2022 0.9 % sodium chloride infusion 25 mL, IntraVENous, at 100 mL/hr, PRN, If patient receiving piggyback infusions without ordered maintenance IV fluids or with frequent/long duration piggyback infusions, Starting on [place] 02/06/22 at 2148, Administer at the same rate as the piggyback being infused. acetaminophen (TYLENOL) tablet 650 mg 650 mg, Oral, EVERY 8 HOURS PRN, Starting on [place] 02/06/22 at 2154, Until Discontinued, Pain Mild (1-3), Maximum dose of acetaminophen is 4000 mg from all sources in 24 hours. morphine sulfate (PF) injection 4 mg 4 mg, IntraVENous, EVERY 4 HOURS PRN, 2 doses, Starting on [place] 02/06/22 at 2155, Until Discontinued, Pain Severe (7-10), If oral and IV narcotics ordered, use oral first and only use IV if oral is ineffective or cannot take oral. Do Not give oral and IV within 1 hour of each other unless specifically ordered. ondansetron (ZOFRAN) injection 4 mg 4 mg, IntraVENous, EVERY 30 MIN PRN, 2 doses, Starting on [place] 02/06/22 at 2148, Until Discontinued, Nausea regadenoson (LEXISCAN) injection 0.4 mg 0.4 mg, IntraVENous, IMG ONCE PRN, 1 dose, Starting on [place] 02/06/22 at 2155, Until Discontinued, Other, Only to be given in Nuclear Med during CARDIAC STRESS TEST ONLY. sodium chloride flush 0.9 % injection 5-40 mL 5-40 mL, IntraVENous, PRN, Starting on [place] 02/06/22 at 2148, Until Discontinued, Line Care, After every IV line use, For Line Patency: Peripheral IV = 5 mL; Midline or Central Line = 10 mL/lumen. If following IV push medication, administer flush at same rate as the IV push. Flush volume is determined by type of infusion therapy being given. For non-viscous solutions use: Peripheral IV = 5 mL Midline or Central Line = 10 mL/lumen For viscous solutions (i.e. blood components, parenteral nutrition, contrast media, or after obtaining blood sample) use: Peripheral IV = 10 mL Midline or Central Line = 20 mL/lumen Care Teams (unrecognized sec tion and content) [employer] Relationship Specialty Start Date End Date Monika Pepe [address] [place] [address] PCP - General 12/18/16 [employer] Relationship Specialty Start Date End Date Monika Pe[place] [address] [place] [id number] PCP - General Nurse Practitioner 12/18/16 FOR RECORDS PERTAINING TO PATIENTS WHO ARE OR HAVE BEEN ENROLLED IN A CHEMICAL DEPENDENCY/SUBSTANCEABUSE PROGRAM, SOME INFORMATION MAY BE OMITTED. This clinical summary was aggregated from multiple sources. Caution should be exercised in using it in the provision of clinical care. This summary normalizes information from multiple sources, and as a consequence, information in this document may materially change the coding, format and clinical context of patient data. In addition, data may be omitted in some cases. CLINICAL DECISIONS SHOULD BE BASED ON THE PRIMARY CLINICAL RECORDS. [facility] [employer] [facility]. provides no warranty or guarantee of the accuracy or completeness of information in this document.
[2024-04-12 23:51] LABS: Absolute Lymphocyte Count 2.25 X10^3/uL (0.83-4.51); Basophil# 0.07 X10^3/uL; Basophil% 0.7 % (0-1); Eosinophil# 0.13 X10^3/uL; Eosinophils% 1.2 % (0-5); Hematocrit 46.3 % (40-54); Hemoglobin 15.7 g/dL (13.0-16.5); Lymphocyte # 2.25 X10^3/ul (0.83-4.51); Lymphocyte % 21.1 % (19-41); Mean Corp Hgb Conc 33.9 g/dL (32-36); Mean Corpuscular Hgb 32.4 pg (27.0-32.0); Mean Corpuscular Volume 95.7 fL (80-94); Mean Platelet Vol. 12.9 fl (6.2-12.0); Monocyte# 1.18 X10^3/uL; Monocyte% 11.1 % (0-10); NRBC Flagged by Analyzer 0 % (0-5); Neutrophil # 6.99 X10^3/uL (2.7-7.7); Neutrophil % 65.5 % (47-70); Platelet Count 155 K/mm3 (150-450); RBC Distribution Width CV 13.2 % (11.6-14.6); RBC Distribution Width SD 46.6 fl (35.1-43.9); Red Blood Count 4.84 M/mm3 (4.6-6.2); White Blood Count 10.7 K/mm3 (4.4-11.0)
[2024-04-13 00:03] LABS: ALB/GLOB Ratio 1.3 RATIO (0.9-2.4); AST(SGOT) 38 U/L (15-37); Alanine Aminotransfer ALT/SGPT 39 U/L (16-61); Alkaline Phosphatase 112 U/L (45-117); Anion Gap 3 (5-15); BUN 16 mg/dL (7-18); BUN/Creat Ratio 13.6 RATIO (10-20); Calcium,Total 9.7 mg/dL (8.5-10.1); Chloride 105 mmol/L (98-107); Cholesterol 145 mg/dL (200); Creatinine, Serum 1.18 mg/dL (0.70-1.30); EST Glomerular Filtration Rate 63 mL/min (>60); Est Glom Filt Rate - Afr Amer 77 mL/min (>60); Globulin 3.1 g/dL (2.2-4.2); Glucose 97 mg/dL (74-106); High Density Lipoprotein 51 mg/dL; Protein, Total 7.1 g/dL (6.4-8.2); Sodium Level 142 mmol/L (136-145); Triglycerides 131 mg/dL; Very Low Density Lipoprotein 26 mg/dL (5-40)
[2024-04-14 05:07] LABS: CRP, High Sensitivity 1.42 mg/L (0.00-3.00)
== END | disposition home or self-care (01) ==
PROVIDERS: PCP Nurse Practitioner; Referring Provider Nurse Practitioner; Visit Provider Nurse Practitioner
DX: I10 Essential (primary) hypertension (principal); E78.5 Hyperlipidemia, unspecified
CPT/HCPCS: 80053; 80061; 85025; 86141

== ENCOUNTER → 2024-10-25 | Outpatient (CLI) | payer MEDICARE, SELFPAY ==
[2024-10-25 22:13] LABS: Absolute Lymphocyte Count 1.98 X10^3/uL (0.83-4.51); Absolute Neutrophil Count 4.7 X10^3/uL (2.0-7.7); Basophil# 0.07 X10^3/uL; Basophil% 0.9 % (0-1); Eosinophil# 0.14 X10^3/uL; Eosinophils% 1.8 % (0-5); Hematocrit 45.2 % (40-54); Hemoglobin 15.4 g/dL (13.0-16.5); Lymphocyte # 1.98 X10^3/ul (0.83-4.51); Lymphocyte % 25.1 % (19-41); Mean Corp Hgb Conc 34.1 g/dL (32-36); Mean Corpuscular Hgb 32.8 pg (27.0-32.0); Mean Corpuscular Volume 96.2 fL (80-94); Mean Platelet Vol. 12.8 fl (6.2-12.0); Monocyte# 0.97 X10^3/uL; Monocyte% 12.3 % (0-10); NRBC Flagged by Analyzer 0 % (0-5); Neutrophil % 59.6 % (47-70); Platelet Count 151 K/mm3 (150-450); RBC Distribution Width CV 12.8 % (11.6-14.6); RBC Distribution Width SD 45.6 fl (35.1-43.9); White Blood Count 7.9 K/mm3 (4.4-11.0)
[2024-10-25 22:58] LABS: ALB/GLOB Ratio 1.5 RATIO (0.9-2.4); AST(SGOT) 39 U/L (<=37); Alanine Aminotransfer ALT/SGPT 32 U/L (<=46); Albumin, Serum 4.6 g/dL (3.4-4.8); Alkaline Phosphatase 113 U/L (40-129); Anion Gap 11 (5-15); BUN 14 mg/dL (4-19); BUN/Creat Ratio 14.6 RATIO (10-20); Calcium,Total 9.9 mg/dL (7.6-11.0); Carbon Dioxide 27.5 mmol/L (21.0-32.0); Chloride 99 mmol/L (98-108); Creatinine, Serum 0.96 mg/dL (0.70-1.20); EST Glomerular Filtration Rate 80 (>60); Glucose 116 mg/dL (70-99); Potassium 4.1 mmol/L (3.3-5.1); Protein, Total 7.6 g/dL (5.9-8.4); Sodium Level 138 mmol/L (133-145); Total Bilirubin 0.59 mg/dL (0.00-1.30)
[2024-10-25 23:09] LABS: Cholesterol 138 mg/dL (<=200); High Density Lipoprotein 47 mg/dL; Low Density Lipoprotein Calc. 63 mg/dL; Triglycerides 140 mg/dL; Very Low Density Lipoprotein 28 mg/dL (5-40); cholesterol:hdl ratio screen 2.94
[2024-10-25 23:10] LABS: PSA,Total- Diagnostic < 0.02 ng/mL (0.00-4.00)
== END | disposition home or self-care (01) ==
PROVIDERS: PCP Nurse Practitioner; Referring Provider Nurse Practitioner; Visit Provider Nurse Practitioner
DX: R35.0 Frequency of micturition (principal); Z95.1 Presence of aortocoronary bypass graft; R53.83 Other fatigue; E78.5 Hyperlipidemia, unspecified; I10 Essential (primary) hypertension
CPT/HCPCS: 80053; 80061; 84153; 85025

== ENCOUNTER 2025-04-24 10:29 | Emergency (ER) | payer MEDICARE, SELFPAY ==
[2025-04-24 10:31] VITALS: BP 166/69; PULSE 64; RESP 17; TEMP 36.3; O2SAT 100; BMI 25.0
[2025-04-24 12:30] VITALS: BP 127/80; PULSE 70; O2SAT 100
--- NOTE | 2025-04-24 12:40 | RAD_ITS ---
PROCEDURE: RAD/Chest PA and Lateral
--- NOTE | 2025-04-24 14:03 | EX.ED.DYSGE1 ---
HPI History of Present Illness Chief Complaint: Dizziness Narrative Narrative: Patient is a 79-year-old male with past medical history of GERD, hypertension, hyperlipidemia, CABG who presents to the emergency department cough, congestion, sore throat and not feeling well. He states that over the past few days he has been feeling under the weather and notes that his had been ill recently. He notes that his was prescribed a antibiotic he believes it was amoxicillin and he started taking this and he states his sore throat did get better after just a dose or 2. He denies any fevers or chills. He states that since his symptoms are getting better he came here to be further evaluated. And triage notes states that he is dizzy and he is not dizzy after further clarification. [facility] Medical History Torticollis Chronic back pain Hemorrhoids Diverticulitis GERD (gastroesophageal reflux disease) [place] Hx of echocardiogram Hypertension Hyperlipidemia LDL goal <130 Anxiety disorder Pneumonia Cough productive of clear sputum Acute seasonal allergic rhinitis Home Medications ?Medication ?Instructions ?Recorded ?Last Taken ?Type aspirin 81 mg tablet,delayed 81 mg PO QDAY 01/25/18 04/23/25 History release (Adult Aspirin Regimen) glucosamine 500 mg-chondroit 400 1 ea PO DAILY 01/25/18 04/24/25 History mg-vit C 2 mg-yeison 0.33 mg capsule lddswofo-xm-dpzla 300 mcg-K 60 1 tab PO DAILY supplement 05/05/18 04/24/25 History mcg-lycop 600 mcg-lutein 300 mcg tablet zinc 50 mg tablet 50 mg PO DAILY 03/14/20 04/24/25 History mv-mn-folic 200 mcg-vit K 15 1 cap PO QDAY 03/09/24 04/24/25 History mcg-lutein 5 mg-zeaxanthin 1 mg capsule (PreserVision AREDS 2 Plus Multivit) amlodipine 10 mg tablet 10 mg PO QDAY #90 tabs 01/31/25 04/24/25 Rx atorvastatin 80 mg tablet 80 mg PO QDAY #90 tabs 01/31/25 04/23/25 Rx citalopram 20 mg tablet 20 mg PO QDAY #90 tabs 01/31/25 04/24/25 Rx hydrochlorothiazide 12.5 mg tablet 12.5 mg PO QAM #90 tabs 01/31/25 04/24/25 Rx lansoprazole 30 mg capsule,delayed 30 mg PO QDAY #90 caps 01/31/25 04/24/25 Rx release losartan 100 mg tablet 100 mg PO QDAY 3 months #90 tabs 01/31/25 04/24/25 Rx Allergy/AdvReac Type Severity Reaction Status Date / Time sulfamethoxazole (From Allergy Severe HIVES/SWELL Verified 04/24/25 10:33 Bactrim) ING trimethoprim (From Bactrim) Allergy Severe HIVES/SWELL Verified 04/24/25 10:33 ING Beta-Blockers Allergy Other Verified 04/24/25 10:33 (Beta-Adrenergic Bloc Sulfa (Sulfonamide Allergy Hives Verified 04/24/25 10:33 Antibiotics) verapamil Allergy Other Verified 04/24/25 10:33 Family History Brother Heart disease quadruple bypass at 76 other brother had stents at 80 Hypertension one brother had quadruple bypass the other brother had stents Other FH: kidney cancer History of high cholesterol Kidney disease Respiratory disease kidney cancer Surgical History History of deep lamellar endothelial keratoplasty (DLEK) H/O prostatectomy History of cholecystectomy S/P CABG x 3 Previous back surgery History of appendectomy History of prostate cancer Social History housing: house Smoking Status: Never smoker alcohol intake: never substance use type: does not use ROS ROS ED ROS Narrative Constitutional: Denies any fevers, chills, headaches, lightness, dizziness Eyes: Complains of a runny nose and congestion denies double vision Cardiovascular: Denies chest pain Respiratory: Complains of cough denies shortness of breath Abdomen: Denies abdominal pain nausea vomit diarrhea : Denies urinary symptoms Neurological: Denies numbness, weakness, tingling Musculoskeletal: Denies back pain Skin: Denies any rashes or lesions EXAM Physical Exam Narrative Exam Narrative: General: Patient was lying in bed rest comfortably did not appear to be in acute distress Head: Atraumatic, normocephalic Eyes, ears, nose, throat: PERRL bilaterally, EOMI bilaterally, no conjunctival injection noted, mild posterior pharynx erythema noted, uvula midline, no exudates noted Neck: Soft, supple, trachea midline Cardiovascular: Regular rate and rhythm Respiratory: Clear to auscultation bilaterally Abdomen: Soft, nondistended, nontender to palpation Extremities: +4/5 strength noted in the bilateral lower extremities Neurological: Patient follow commands knew that he was at [facility] 2024 Skin: Warm, dry, intact no rashes or lesions noted Const Vital Signs: 04/24/25 10:31 04/24/25 12:30 Temperature 97.3 F L Temperature Source Temporal Pulse Rate 64 70 Respiratory Rate 17 Blood Pressure 166/69 H 127/80 H Blood Pressure Mean 101 95 Pulse Ox 100 100 Oxygen Delivery Method Room Air MDM MDM MDM Narrative Medical decision making narrative: Patient is a 79-year-old male who presented to the emergency department with upper respiratory infectious type symptoms. On the differential diagnosis includes but not limited to upper respiratory infection secondary viral etiology, viral pharyngitis, strep throat, pneumonia. Once workup is obtained and reviewed he will be reevaluated. Strep test was negative. Patient chest x-ray reviewed by myself by radiology showed no acute cardiopulmonary processes. Discussed results with patient he would like to go home at this point time. He is vies to continue supportive care follow-up with his doctor in outpatient setting return with worsening symptoms or any concerns. He is agreeable this plan all question concerns answered he was discharged home in stable condition Radiography Diagnostic Testing: Clinical Impression(s) from Imaging Studies Chest X-Ray 04/24/25 12:40 IMPRESSION: Hyperinflation. The lungs are clear. Reading Location: [facility] Discharge Plan Triage Chief Complaint: Dizziness ED Provider: Torsten Bynum Dx/Rx/DC Orders Clinical Impression: Cough, Upper respiratory infection, viral, S/P CABG x 3, Hypertension Prescriptions: No Action aspirin [Adult Aspirin Regimen] 81 mg tablet,delayed release (DR/EC) 81 mg PO QDAY [id number]-ywjcyfgmv-N-manganese 1 EACH capsule 1 ea PO DAILY zinc 50 mg tablet 50 mg PO DAILY PreserVision AREDS 2 Plus MV 200 mcg-15 mcg- 5 mg-1 mg capsule 1 cap PO QDAY amlodipine 10 mg tablet 10 mg PO QDAY Qty: 90 3RF atorvastatin 80 mg tablet 80 mg PO QDAY Qty: 90 3RF citalopram 20 mg tablet 20 mg PO QDAY Qty: 90 3RF hydrochlorothiazide 12.5 mg tablet 12.5 mg PO QAM Qty: 90 3RF lansoprazole 30 mg capsule,delayed release(DR/EC) 30 mg PO QDAY Qty: 90 3RF losartan 100 mg tablet 100 mg PO QDAY 90 Days Qty: 90 1RF [id number]-bdmpa-A4-rdxzhrb-dvinua 1 EACH tablet 1 tab PO DAILY Primary Care Provider: Caprice Morales NP Referrals: Caprice Morales NP, [facility]NAG[facility]IST[facility] [Primary Care Provider, Family Practice] Print Language: Kinyarwanda Disposition Disposition: Home, Self Care Discharge Date/Time: 04/24/25 13:51
== END 2025-04-24 13:51 | disposition home or self-care (01) ==
LOC: ED 13:05
PROVIDERS: Emergency Provider Emergency Medicine; PCP Nurse Practitioner; Visit Provider Emergency Medicine
DX: J06.9 Acute upper respiratory infection, unspecified (principal); I10 Essential (primary) hypertension; Z95.1 Presence of aortocoronary bypass graft; Z79.82 Long term (current) use of aspirin; Z79.899 Other long term (current) drug therapy
CPT/HCPCS: 71046; 87651; 99282; A4216